=== PATIENT | male | born 1960 | race Caucasian/White ===

== ENCOUNTER 2023-08-29 22:07 | Inpatient (IN) ==
--- NOTE | 2023-08-29 22:35 | Emergency Department Note ---
History of Present Illness General Chief complaint: Fall Time Seen by Provider: 08/29/23 22:19 History of Present Illness Maximum Pain Intensity: 7 This 63-year-old male presents the ER complaining of head and neck bilateral knee left hip and left de león pain after he fell at work today. 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 This is a work-related injury. Send at 2:30 in the afternoon and is now 10:30 at night. He has been ambulating but having severe pain in the left calf when walking. Patient denies chest pain, dyspnea, abdominal pain, numbness, tingling, localized weakness. Home Medications Medication Instructions Recorded Confirmed Type aspirin 81 mg tablet,delayed 81 mg PO DAILY 08/30/23 08/30/23 History release atorvastatin 40 mg tablet 40 mg PO HS 08/30/23 08/30/23 History bupropion HCl 150 mg tablet,12 hr 150 mg PO BID 08/30/23 08/30/23 History sustained-release cholecalciferol (vitamin D3) 50 50 mcg PO DAILY 08/30/23 08/30/23 History mcg (2,000 unit) capsule (Vitamin D3) coenzyme Q10 100 mg capsule 100 mg PO DAILY 08/30/23 08/30/23 History (CoQ-10) dulaglutide 1.5 mg/0.5 mL 1.5 mg subcut WK 08/30/23 08/30/23 History subcutaneous pen injector (Trulicity) empagliflozin 25 mg tablet 25 mg PO DAILY 08/30/23 08/30/23 History (Jardiance) insulin lispro protamine-lispro See Rx Instructions .Route .COMPLEX 08/30/23 08/30/23 History 100 unit/mL (75-25) subcutaneous pen (Humalog Mix 75-25 ZainabikPen) lisinopril 10 mg tablet 10 mg PO DAILY 08/30/23 08/30/23 History meloxicam 15 mg tablet 15 mg PO DAILY 08/30/23 08/30/23 History metformin 1,000 mg tablet 1,000 mg PO BID 08/30/23 08/30/23 History methocarbamol 750 mg tablet 750 mg PO HS 08/30/23 08/30/23 History metoclopramide HCl 10 mg tablet 10 mg PO BID 08/30/23 08/30/23 History (Reglan) metoprolol tartrate 25 mg tablet 25 mg PO BID 08/30/23 08/30/23 History multivitamin 1 tab PO DAILY 08/30/23 08/30/23 History omeprazole 40 mg capsule,delayed 40 mg PO DAILY 08/30/23 08/30/23 History release ropinirole 0.5 mg tablet 0.5 mg PO HS 08/30/23 08/30/23 History zolpidem 5 mg tablet 5 mg PO HS PRN Sleep 08/30/23 08/30/23 History Allergies Allergy/AdvReac Type Severity Reaction Status Date / Time No Known Allergies Allergy Verified 08/30/23 07:13 Past Med/Surg History Social History (System 08/30/23 @ 07:13 by Kassi Forbes) Smoking Status: Never smoker Preferred Language: Sami Communication Ability: Effective Feels Safe at Home: Yes Assistive Devices: None Review of Systems A total of 10 systems reviewed and were otherwise negative Physical Exam Vital Signs Vital Signs - 24 hr 08/29/23 22:18 08/29/23 23:40 08/30/23 00:46 Temperature 36.7 C Temperature Source Oral Pulse Rate 92 H 89 Pulse Rate [Apical] 88 Respiratory Rate 22 20 Respiratory Effort / Characteristics Non-Labored Spontaneous Respiratory Depth Normal Respiratory Pattern Regular Blood Pressure 161/85 H Blood Pressure [Right Arm] 153/81 H Blood Pressure Mean 110 Blood Pressure Mean [Right Arm] 105 Blood Pressure Position Semi-fowlers Pulse Oximetry 95 96 Oxygen Delivery Method Room Air Room Air Sepsis Recent Fever Within 48 Hours No Sepsis New/Unexplained Change in Mental Status N/A Sepsis Action Taken by Nursing No Action Required 08/30/23 01:41 08/30/23 03:00 08/30/23 03:33 Temperature Temperature Source Pulse Rate 91 H Pulse Rate [Apical] 88 90 Respiratory Rate 20 20 Respiratory Effort / Characteristics Respiratory Depth Respiratory Pattern Blood Pressure Blood Pressure [Right Arm] 135/76 181/100 H Blood Pressure Mean Blood Pressure Mean [Right Arm] 95 127 Blood Pressure Position Pulse Oximetry 95 95 Oxygen Delivery Method Room Air Room Air Sepsis Recent Fever Within 48 Hours Sepsis New/Unexplained Change in Mental Status Sepsis Action Taken by Nursing 08/30/23 03:58 Temperature Temperature Source Pulse Rate Pulse Rate [Apical] 87 Respiratory Rate 16 Respiratory Effort / Characteristics Respiratory Depth Respiratory Pattern Blood Pressure Blood Pressure [Right Arm] 166/82 H Blood Pressure Mean Blood Pressure Mean [Right Arm] 110 Blood Pressure Position Pulse Oximetry 95 Oxygen Delivery Method Room Air Sepsis Recent Fever Within 48 Hours Sepsis New/Unexplained Change in Mental Status Sepsis Action Taken by Nursing PHYSICAL EXAM: VITALS: Vitals are noted on the nurse's note and reviewed by myself. Vital signs stable. GENERAL: Pleasant gentleman, in no acute distress, nondiaphoretic, well- developed well-nourished. SKIN: The skin was without obvious lacerations or abrasions. Capillary reflex less than 2 seconds. HEAD: Normocephalic atraumatic. EARS: External auditory canals clear, tympanic membranes pearly alejandre without erythema or effusion bilaterally. No hemotympanums. No ni sign. No mastoid tenderness. EYES: Pupils equal round and reactive to light and accommodation. Conjunctivae without injection, sclerae without icterus. Extraocular movements intact. NOSE: Patent, turbinates without inflammation or discharge. No sinus tenderness. MOUTH: Mucous membranes moist. Pharynx without erythema or exudate. Uvula midline. Airway patent. Tongue does not deviate. NECK: Supple without nuchal rigidity. C-collar is in place, no JVD. HEART: Regular rate and rhythm LUNGS: Clear to auscultation bilaterally without wheezes, rales or rhonchi. No dullness to percussion. No retractions or accessory muscle use. No chest wall tenderness. ABDOMEN: Positive bowel sounds x 4. Normal tympanic percussion. Soft, nontender, without masses or organomegaly. No guarding or rebound tenderness. MUSCULOSKELETAL: No tenderness of the thoracic or lumbar spine. No tenderness with pelvic rocking. Left hip, left knee, left tib-fib and right knee tender to palpation with full range of motion. Full range of motion without tenderness to palpation in all other extremities. Normal gait. Strength 5/5 throughout. NEURO: Patient was alert and oriented to person place and time. Normal sensation to light and sharp touch. No focal neurological deficits. Course Administered Medications Bupropion HCl (Bupropion Sr 150 Mg Tabcr) 150 mg PO BID LANCE Stop: 09/29/23 08:59 Last Admin: 08/30/23 11:04 Dose: 150 mg Documented By: GERMAN Sodium Chloride (Nss) 1,000 mls @ 50 mls/hr IV .Q20H STA Stop: 08/31/23 01:01 Last Admin: 08/30/23 05:26 Dose: 50 mls/hr Documented By: DOMINIC Insulin Aspart (Insulin Aspart Per Unit Charge) 0 units SC ACHS LANCE Stop: 09/29/23 07:44 Last Admin: 08/30/23 17:51 Dose: 4 units Documented By: GERMAN Co-signed By: NIR Admin: 08/30/23 13:59 Dose: 4 units Documented By: GERMAN Co-signed By: TIMOTHY Admin: 08/30/23 11:01 Dose: 3 units Documented By: GERMAN Co-signed By: TIMOTHY Insulin Glargine (Lantus Per Unit Charge) 10 units SQ BID LANCE Stop: 09/29/23 08:59 Last Admin: 08/30/23 11:02 Dose: 10 units Documented By: GERMAN Co-signed By: TIMOTHY Lisinopril (Lisinopril 10 Mg Tab) 10 mg PO DAILY LANCE Stop: 09/29/23 08:59 Last Admin: 08/30/23 16:49 Dose: Not Given Documented By: GERMAN Metoclopramide HCl (Metoclopramide Hcl 10 Mg Tablet) 10 mg PO BID LANCE Stop: 09/29/23 08:59 Last Admin: 08/30/23 14:18 Dose: 10 mg Documented By: GERMAN Metoprolol Tartrate (Metoprolol Tartrate 25 Mg Tab) 25 mg PO BID LANCE Stop: 09/29/23 08:59 Last Admin: 08/30/23 14:19 Dose: 25 mg Documented By: GERMAN Morphine Sulfate (Morphine Sulfate 4 Mg/Ml 1 Ml Carp\Vial) 4 mg IV Q4H PRN PRN Reason: Pain Stop: 09/13/23 04:55 Last Admin: 08/30/23 16:44 Dose: 4 mg Documented By: Admin: 08/30/23 11:10 Dose: 4 mg Documented By: GERMAN Multivitamins (Multivitamin Tab) 1 tab PO DAILY LANCE Stop: 09/29/23 08:59 Last Admin: 08/30/23 14:18 Dose: Not Given Documented By: GERMAN Pantoprazole Sodium (Pantoprazole 40 Mg Tab) 40 mg PO DAILY LANCE Stop: 09/29/23 08:59 Last Admin: 08/30/23 11:05 Dose: 40 mg Documented By: GERMAN Discontinued Medications Acetaminophen (Acetaminophen 500 Mg Tab) 1,000 mg PO NOW STA Stop: 08/29/23 22:31 Last Admin: 08/29/23 22:39 Dose: 1,000 mg Documented By: Clonidine HCl (Clonidine Hcl 0.1 Mg Tab) 0.1 mg PO NOW STA Stop: 08/30/23 03:53 Last Admin: 08/30/23 03:59 Dose: 0.1 mg Documented By: DOMINIC Ibuprofen (Ibuprofen 200 Mg Tab) 400 mg PO NOW STA Stop: 08/30/23 02:06 Last Admin: 08/30/23 02:17 Dose: 400 mg Documented By: DOMINIC Ketorolac Tromethamine (Ketorolac Tromethamine 15 Mg/Ml Vial) 10 mg IV NOW STA Stop: 08/30/23 03:23 Last Admin: 08/30/23 03:55 Dose: 10 mg Documented By: DOMINIC Morphine Sulfate (Morphine Sulfate 4 Mg/Ml 1 Ml Carp\Vial) 4 mg IV NOW STA Stop: 08/30/23 04:20 Last Admin: 08/30/23 04:57 Dose: 4 mg Documented By: DOMINIC Medical Decision Making Medical Records Attestation: I reviewed the patient's medical records. Home Medications Current Medication List: was personally reviewed by me Laboratory Data 08/30/23 03:50 08/30/23 03:50 Lab Results 08/30/23 Range/Units 03:50 WBC 12.28 H (4.8-10.8) K/ul RBC 5.35 (4.70-6.10) M/uL Hgb 14.9 (14.0-18.0) g/dl Hct 44.5 (42.0-52.0) % MCV 83.2 (80.0-100.0) fL MCH 27.9 (25.0-34.0) pg MCHC 33.5 (32.0-36.0) g/dL RDW Std Deviation 41.9 (36.4-46.3) fL RDW Coeff of Vaishnavi 13.9 (11.5-14.5) % Plt Count 260 (130-400) K/uL MPV 10.6 (9.4-12.4) fL Immature Gran % (Auto) 0.6 % Neut % (Auto) 70.5 % Lymph % (Auto) 19.7 % Gem % (Auto) 7.6 % Eos % (Auto) 1.2 % Baso % (Auto) 0.4 % Neut # (Auto) 8.66 H (1.40-6.50) K/uL Lymph # (Auto) 2.42 (1.20-3.40) K/uL Gem # (Auto) 0.93 H (0.11-0.59) K/uL Eos # (Auto) 0.15 (0.00-0.50) K/uL Baso # (Auto) 0.05 (0.00-0.20) K/uL Immature Gran # (Auto) 0.07 (0.01-0.20) K/uL Sodium 134 L (136-145) mmol/L Potassium 4.1 (3.5-5.1) mmol/L Chloride 101 (98-107) mmol/L Carbon Dioxide 22 (21-32) mmol/L Anion Gap 11 (3-11) BUN 14 (6-23) mg/dl Creatinine 0.69 (0.6-1.4) mg/dl Est Cr Clr Drug Dosing 147.3 ml/min Est GFR ( Amer) 116.3 ml/min Est GFR (Non-Af Amer) 100.3 ml/min BUN/Creatinine Ratio 20.3 H (10-20) Glucose 151 H (70-99(Fasting)) mg/dl Estimat Average Glucose 151 mg/dl Hemoglobin A1c 6.9 H (4.5-5.6) % Calcium 9.8 (8.6-10.3) mg/dl Total Bilirubin 1.0 (0.2-1.0) mg/dl AST 20 (13-39) U/L ALT 28 (7-52) U/L Alkaline Phosphatase 94 (34-104) U/L Total Creatine Kinase 140 (30-223) U/L Total Protein 7.7 (6.0-8.3) gm/dl Albumin 4.5 (3.4-5.0) gm/dl Globulin 3.2 (2.5-4.0) gm/dl Albumin/Globulin Ratio 1.4 (0.9-2) Imaging Data Attestation: I personally reviewed and interpreted this imaging study as follows: Radiologist's Impression: Cervical Spine CT 08/29/23 22:30 Exam(s): CT C SPINE EXAM: CT Cervical Spine Without Intravenous Contrast CLINICAL HISTORY: Reason for exam: fall, HI. TECHNIQUE: Axial computed tomography images of the cervical spine without intravenous contrast. Automated exposure control was utilized for the study. A dose lowering technique was utilized adhering to the principles of ALARA. COMPARISON: No relevant prior studies available. FINDINGS: Vertebrae: Unremarkable. No acute fracture. Discs/spinal canal/neural foramina: No acute findings. Critical spinal canal stenosis at C3-4 and C5-6. Soft tissues: Left thyroid nodule. IMPRESSION: No evidence of acute cervical spine pathology. Critical spinal canal stenosis at C3-4 and C5-6. Recommend MRI of the cervical spine to evaluate for myelopathy. Electronically signed by: Alysia Marquez MD 08/30/23 00:[address] 08/29/23 22:30 Exam(s): CT HEAD Without Contrast EXAM: CT Head Without Intravenous Contrast CLINICAL HISTORY: Reason for exam: fall, HI. TECHNIQUE: Axial computed tomography images of the head/brain without intravenous contrast. Automated exposure control was utilized for the study. A dose lowering technique was utilized adhering to the principles of ALARA. COMPARISON: No relevant prior studies available. FINDINGS: Brain: Unremarkable. No hemorrhage. No significant white matter disease. No edema. Small benign congenital arachnoid cyst over the left frontal convexity. Ventricles: Mild ventriculomegaly. Bones/joints: Unremarkable. No acute fracture. Soft tissues: Unremarkable. Sinuses: Bilateral maxillary sinus retention cyst. No acute sinusitis. Mastoid air cells: Unremarkable as visualized. No mastoid effusion. IMPRESSION: No evidence of acute intracranial pathology. Electronically signed by: Alysia Marquez MD 08/30/23 00:33 AM Cervical Spine MRI 08/30/23 00:34 CR Exam(s): MRI C SPINE EXAM: MR Cervical Spine Without Intravenous Contrast CLINICAL HISTORY: Reason for exam: fall, severe pain, abnl CT. TECHNIQUE: Magnetic resonance images of the cervical spine without intravenous contrast in multiple planes. COMPARISON: Comparison made to prior CT scan of the cervical spine from August 29, 2023. FINDINGS: This study is limited secondary to motion artifact. Vertebrae: There are 7 cervical type vertebral bodies with a mild generalized curve to the right and straightening the normal cervical lordosis. There is normal vertebral body height and alignment. The bone marrow signal is heterogeneous with reactive endplate changes. There is narrowing of the cervical spinal canal secondary to congenitally short pedicles. No acute fracture. Spinal cord: There is flattening of the cord at C3-4, C4-5 and C5-6 with increased cord signal at C3-4 concern for cord edema. Soft tissues: The cervical flow voids are intact. DISCS/SPINAL CANAL/NEURAL FORAMINA: C2-C3: Moderate disc degeneration with annular disc bulge flattening the ventral thecal sac. There is moderate facet joint arthropathy with mild synovitis. C3-C4: Advanced disc degeneration with annular disc bulge flattening the ventral cord with increased cord signal concerning for cord edema and causing a critical spinal canal stenosis with AP diameter measuring 6 mm. There is moderate right and advanced left facet arthropathy with mild right and moderate left synovitis. C4-C5: Advanced disc degeneration with annular disc bulge flattening the ventral cord without abnormal cord signal and causing a critical spinal canal stenosis with AP diameter measuring 5.2 mm. There is advanced right and mild left facet arthropathy with moderate to advanced synovitis. C5-C6: Advanced disc degeneration with annular disc bulge flattening the ventral cord without evidence of abnormal cord signal and causing a severe spinal canal stenosis with AP diameter measuring 7.2 mm. There is mild facet arthropathy with mild synovitis. C6-C7: Advanced disc degeneration with annular disc bulge flattening the ventral thecal sac. There is mild facet arthropathy with mild synovitis. C7-T1: Advanced disc degeneration with annular disc bulge flattening the ventral thecal sac. There is minimal to mild facet joint arthropathy with mild synovitis. IMPRESSION: 1. Advanced disc degeneration at C3-4, C4-5, C5-6, C6-7 and C7-T1 and moderate disc degeneration at C2-3 with annular disc bulging flattening the ventral thecal sac and flattening the ventral cord at C3-4, C4-5 and C5-6 with increased cord signal at C3-4 concern for cord edema. Recommend neurosurgical consult for decompression. 2. There is a critical spinal canal stenosis at C3-4 and C4-5 with severe stenosis at C5-6. 3. The neural foramina are poorly visualized secondary to motion artifact. 4. There is minimal to advanced facet joint arthropathy with mild to advanced synovitis, most significant at C4-5. 5. No evidence of fracture, infection or tumor. Communications: Verify Receipt Electronically signed by: Alysia Marquez MD 08/30/23 02:20 AM MDM Narrative Prior records/ancillary studies reviewed. Triage Nursing notes reviewed. Additional history obtained from nursing. The patient's history was concerning for traumatic injury Differential diagnosis: Etiologies such as fracture, dislocation, intra-abdominal, pneumothorax, intrathoracic , intracranial, neurologic, as well as other traumatic pathologies were entertained. Physical examination findings: As above. The patients vitals were stable. ER treatment provided: Tylenol was ordered Toradol was ordered. Walker ambulation trial was ordered and patient is too much pain to ambulate An order was placed for continuous cardiac monitoring. The monitor shows a rate of 60-100 with a sinus rhythm per my interpretation. On reassessment the patient felt better. Vital signs were stable. Diagnostic interpretation by me: Labs: Mild leukocytosis, stable H&H Mild hyperglycemia without DKA Imaging studies: Bilateral knee x-rays negative fracture dislocation or effusion per my independent interpretation Tib-fib x-ray negative fracture, dislocation or effusion per my independent interpretation Hip x-ray negative fracture, dislocation or effusion per my independent interpretation Consultation: A consultation was placed with neurosurgery spine at [place], Dr. Negrete. The case was discussed and diagnostics were reviewed. He recommends soft c-collar and follow-up as scheduled next week for surgery. Patient states he sees neurosurgery spine at [facility] and this is why do voice was contacted. Consultation was placed with medicine And the case discussed. Patient will be admitted to the medical service for further evaluation and workup. This appears to be consistent with fall with head injury, cervical strain bilateral knee pain and left calf pain. Patient was neurovascularly and neurologically intact. Patient was having too much pain to bear weight on this left calf. I did speak to the neurosurgeon at [facility] who recommends a soft collar and the patient to follow-up as scheduled this Sunday for his surgery. Medicine was consulted here as the patient is having too much pain and felt like this left calf was weak for admission and further workup. X-rays were negative. Patient had no spinal pain. He is able to lift up both legs. He can plantarflex and dorsiflex. Patient fell at 230 yesterday afternoon and did not come to the ER till later last night. Patient is agreeable treatment plan of admission. Patient was admitted to the medical service. By the evaluation outlined above emergent etiologies such as fracture, dislocation, intra- abdominal, pneumothorax, pulmonary contusion, hemothorax, intracranial, as well as others were deemed relatively unlikely. The pt informed about the findings as listed above. All questions were answered and pleased with the treatment. The chart was completed utilizing [employer] Speech voice recognition software. Grammatical errors, random word insertions, pronoun errors, and incomplete sentences are an occassional consequence of this system due to software limitations, ambient noise, and hardware issues. Any formal questions or concerns about the content, text, or information contained within the body of this dictation should be directly addressed to the physician veterinarian assistant for clarification. Impression & Plan Acute neck pain, Fall, Acute pain of left hip, Acute pain of left knee, Pain of left calf, Acute pain of right knee, Head injury Discharge Plan Visit Data Chief Complaint: Fall ED Provider: Sarah Red ED Midlevel Provider: Katarzyna Rebollar Discharge Problem: Acute neck pain, Fall, Acute pain of left hip, Acute pain of left knee, Pain of left calf, Acute pain of right knee, Head injury Patient Disposition: Admitted As Inpatient Condition: Good Discharge Instructions Interventions: ED Discharge Assessment Last Done: 08/30/23 06:27
[2023-08-29] MEDS: ACETAMINOPHEN 500 MG TAB PO STA (22:39)
--- NOTE | 2023-08-30 00:30 | CT Scan Report ---
Exam(s): CT C SPINE EXAM: CT Cervical Spine Without Intravenous Contrast CLINICAL HISTORY: Reason for exam: fall, HI. TECHNIQUE: Axial computed tomography images of the cervical spine without intravenous contrast. Automated exposure control was utilized for the study. A dose lowering technique was utilized adhering to the principles of ALARA. COMPARISON: No relevant prior studies available. FINDINGS: Vertebrae: Unremarkable. No acute fracture. Discs/spinal canal/neural foramina: No acute findings. Critical spinal canal stenosis at C3-4 and C5-6. Soft tissues: Left thyroid nodule. IMPRESSION: No evidence of acute cervical spine pathology. Critical spinal canal stenosis at C3-4 and C5-6. Recommend MRI of the cervical spine to evaluate for myelopathy. Electronically signed by: Alysia Marquez MD 08/30/23 00:29 AM
--- NOTE | 2023-08-30 00:34 | CT Scan Report ---
Exam(s): CT HEAD Without Contrast EXAM: CT Head Without Intravenous Contrast CLINICAL HISTORY: Reason for exam: fall, HI. TECHNIQUE: Axial computed tomography images of the head/brain without intravenous contrast. Automated exposure control was utilized for the study. A dose lowering technique was utilized adhering to the principles of ALARA. COMPARISON: No relevant prior studies available. FINDINGS: Brain: Unremarkable. No hemorrhage. No significant white matter disease. No edema. Small benign congenital arachnoid cyst over the left frontal convexity. Ventricles: Mild ventriculomegaly. Bones/joints: Unremarkable. No acute fracture. Soft tissues: Unremarkable. Sinuses: Bilateral maxillary sinus retention cyst. No acute sinusitis. Mastoid air cells: Unremarkable as visualized. No mastoid effusion. IMPRESSION: No evidence of acute intracranial pathology. Electronically signed by: Alysia Marquez MD 08/30/23 00:33 AM
[2023-08-30] MEDS: IBUPROFEN 200 MG TAB PO STA (02:17)
--- NOTE | 2023-08-30 02:22 | Magnetic Resonance Report ---
Exam(s): MRI C SPINE EXAM: MR Cervical Spine Without Intravenous Contrast CLINICAL HISTORY: Reason for exam: fall, severe pain, abnl CT. TECHNIQUE: Magnetic resonance images of the cervical spine without intravenous contrast in multiple planes. COMPARISON: Comparison made to prior CT scan of the cervical spine from August 29, 2023. FINDINGS: This study is limited secondary to motion artifact. Vertebrae: There are 7 cervical type vertebral bodies with a mild generalized curve to the right and straightening the normal cervical lordosis. There is normal vertebral body height and alignment. The bone marrow signal is heterogeneous with reactive endplate changes. There is narrowing of the cervical spinal canal secondary to congenitally short pedicles. No acute fracture. Spinal cord: There is flattening of the cord at C3-4, C4-5 and C5-6 with increased cord signal at C3-4 concern for cord edema. Soft tissues: The cervical flow voids are intact. DISCS/SPINAL CANAL/NEURAL FORAMINA: C2-C3: Moderate disc degeneration with annular disc bulge flattening the ventral thecal sac. There is moderate facet joint arthropathy with mild synovitis. C3-C4: Advanced disc degeneration with annular disc bulge flattening the ventral cord with increased cord signal concerning for cord edema and causing a critical spinal canal stenosis with AP diameter measuring 6 mm. There is moderate right and advanced left facet arthropathy with mild right and moderate left synovitis. C4-C5: Advanced disc degeneration with annular disc bulge flattening the ventral cord without abnormal cord signal and causing a critical spinal canal stenosis with AP diameter measuring 5.2 mm. There is advanced right and mild left facet arthropathy with moderate to advanced synovitis. C5-C6: Advanced disc degeneration with annular disc bulge flattening the ventral cord without evidence of abnormal cord signal and causing a severe spinal canal stenosis with AP diameter measuring 7.2 mm. There is mild facet arthropathy with mild synovitis. C6-C7: Advanced disc degeneration with annular disc bulge flattening the ventral thecal sac. There is mild facet arthropathy with mild synovitis. C7-T1: Advanced disc degeneration with annular disc bulge flattening the ventral thecal sac. There is minimal to mild facet joint arthropathy with mild synovitis. IMPRESSION: 1. Advanced disc degeneration at C3-4, C4-5, C5-6, C6-7 and C7-T1 and moderate disc degeneration at C2-3 with annular disc bulging flattening the ventral thecal sac and flattening the ventral cord at C3-4, C4-5 and C5-6 with increased cord signal at C3-4 concern for cord edema. Recommend neurosurgical consult for decompression. 2. There is a critical spinal canal stenosis at C3-4 and C4-5 with severe stenosis at C5-6. 3. The neural foramina are poorly visualized secondary to motion artifact. 4. There is minimal to advanced facet joint arthropathy with mild to advanced synovitis, most significant at C4-5. 5. No evidence of fracture, infection or tumor. Communications: Verify Receipt Electronically signed by: Alysia Marquez MD 08/30/23 02:20 AM
[2023-08-30] MEDS: KETOROLAC TROMETHAMINE 15 MG/ML VIAL IV STA (03:55)
[2023-08-30] MEDS: cloNIDine HCL 0.1 MG TAB PO STA (03:59)
[2023-08-30 04:12] LABS: Basophils # (auto) 0.05 K/uL (0.00-0.20); Basophils % (auto) 0.4 %; Eosinophils # (auto) 0.15 K/uL (0.00-0.50); Eosinophils % (auto) 1.2 %; Hematocrit (blood only) 44.5 % (42.0-52.0); Hemoglobin 14.9 g/dl (14.0-18.0); Immature Granulocytes # (auto) 0.07 K/uL (0.01-0.20); Immature Granulocytes % (auto) 0.6 %; Lymphocytes # (auto) 2.42 K/uL (1.20-3.40); Lymphocytes % (auto) 19.7 %; Mean Corpuscular Hemoglobin 27.9 pg (25.0-34.0); Mean Corpuscular Hgb Conc 33.5 g/dL (32.0-36.0); Mean Corpuscular Volume 83.2 fL (80.0-100.0); Mean Platelet Volume 10.6 fL (9.4-12.4); Monocytes # (auto) 0.93 K/uL (0.11-0.59); Monocytes % (auto) 7.6 %; Neutrophils # (auto) 8.66 K/uL (1.40-6.50); Neutrophils % (auto) 70.5 %; Platelet Count 260 K/uL (130-400); RDW Coefficient of Variation 13.9 % (11.5-14.5); RDW Standard Deviation 41.9 fL (36.4-46.3); Red Blood Count 5.35 M/uL (4.70-6.10); White Blood Count 12.28 K/ul (4.8-10.8)
[2023-08-30 04:32] LABS: Albumin Globulin Ratio 1.4 (0.9-2); Albumin Level 4.5 gm/dl (3.4-5.0); BUN Creatinine Ratio 20.3 (10-20); Calcium 9.8 mg/dl (8.6-10.3); Creatinine Clr Calc Pharmacy 147.3 ml/min; Est GFR (African American) 116.3 ml/min; Est GFR (Non-African American) 100.3 ml/min; Globulin 3.2 gm/dl (2.5-4.0); Potassium 4.1 mmol/L (3.5-5.1); Total Protein 7.7 gm/dl (6.0-8.3)
--- NOTE | 2023-08-30 04:52 | History & Physical Report ---
Date of Service August 30, 2023 Assessment & Plan (1) Leg pain, left: Plan: Traumatic left leg pain/weakness Rule out bony injury hx CAD status post stent hypertension, BP much improved hyperlipidemia on statin Rx Cervical cord edema/stenosis on MRI, hx cervical myelopathy, chronic findings as per ER provider discussion with [facility] surgeon DM2 insulin requiring, unknown baseline control mood disorder, stable on bupropion past tobacco abuse OBS GMF Analgesia Follow official x-ray results May need Orthopedics evaluation Maintain cervical collar, outpatient follow-up with neurosurgeon (Dr. Escamilla) for cervical myelopathy next week as per ER provider phone conversation with specialist on-call. Basal bolus insulin, ISS BG goal 1 10-1 40, carb count coverage, check hemoglobin A1c DVT prophylaxis. SCDs Re: Recent trauma Full code Patient brother requesting updates providers. Mr. Roscoe Zazueta, contact #[phone]. Text document was generated using [employer] voice recognition software. It may contain grammatical or spelling errors. Kindly contact undersigned for clarification of any documentation item in question. History of Present Illness Chief Complaint: Fall, left lower leg pain Primary Care Provider: Fernanda Crane PA-C History obtained from patient, family, and records. Medical history significant for CAD status post stent, hypertension, hyperlipidemia, DM2 insulin requiring, cervical myelopathy, mood disorder, past tobacco abuse. 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 Patient landed on his left side resulting head trauma. Achy headache, neck and left lower leg pain following fall. No LOC/syncope. Denies chest pain or unusual SOB. No unusual low back pain. Left leg feels weak from pain as per patient. Chronic numbness on all 4 extremities which patient attributes to cervical myelopathy for which elective surgery is contemplated next week at [facility]. Denies incontinence symptoms. Highest SBP of 180s documented at the ER. SBP currently 150s. Patient unable to walk due to left lower leg pain/weakness. 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 Allergies Allergy/AdvReac Type Severity Reaction Status Date / Time No Known Allergies Allergy Verified 08/30/23 07:13 Home Medications Medication Instructions Recorded Confirmed Type aspirin 81 mg tablet,delayed 81 mg PO DAILY 08/30/23 08/30/23 History release atorvastatin 40 mg tablet 40 mg PO HS 08/30/23 08/30/23 History bupropion HCl 150 mg tablet,12 hr 150 mg PO BID 08/30/23 08/30/23 History sustained-release cholecalciferol (vitamin D3) 50 50 mcg PO DAILY 08/30/23 08/30/23 History mcg (2,000 unit) capsule (Vitamin D3) coenzyme Q10 100 mg capsule 100 mg PO DAILY 08/30/23 08/30/23 History (CoQ-10) dulaglutide 1.5 mg/0.5 mL 1.5 mg subcut WK 08/30/23 08/30/23 History subcutaneous pen injector (Trulicity) empagliflozin 25 mg tablet 25 mg PO DAILY 08/30/23 08/30/23 History (Jardiance) insulin lispro protamine-lispro See Rx Instructions .Route .COMPLEX 08/30/23 08/30/23 History 100 unit/mL (75-25) subcutaneous pen (Humalog Mix 75-25 KwikPen) lisinopril 10 mg tablet 10 mg PO DAILY 08/30/23 08/30/23 History meloxicam 15 mg tablet 15 mg PO DAILY 08/30/23 08/30/23 History metformin 1,000 mg tablet 1,000 mg PO BID 08/30/23 08/30/23 History methocarbamol 750 mg tablet 750 mg PO HS 08/30/23 08/30/23 History metoclopramide HCl 10 mg tablet 10 mg PO BID 08/30/23 08/30/23 History (Reglan) metoprolol tartrate 25 mg tablet 25 mg PO BID 08/30/23 08/30/23 History multivitamin 1 tab PO DAILY 08/30/23 08/30/23 History omeprazole 40 mg capsule,delayed 40 mg PO DAILY 08/30/23 08/30/23 History release ropinirole 0.5 mg tablet 0.5 mg PO HS 08/30/23 08/30/23 History zolpidem 5 mg tablet 5 mg PO HS PRN Sleep 08/30/23 08/30/23 History Past Med/Surg History Social History (System 08/30/23 @ 07:13 by Kassi Forbes) Smoking Status: Never smoker Preferred Language: Sami Communication Ability: Effective Feels Safe at Home: Yes Assistive Devices: None Review of Systems Review of Systems: As per HPI, all other systems reviewed and negative Physical Exam Physical Exam: GENERAL: Slightly uncomfortable, pleasant, obese, no respiratory distress SKIN: Normal color, warm HEENT: [place] palpebral conjunctivae, no ptosis, dry buccal mucosa NECK : Cervical collar in place, no overt tenderness CHEST : CTA, no tenderness HEART : RRR, no obvious murmurs ABDOMEN: Some distention, nontender EXTREMITIES : No LE swelling, LLE tenderness, no other conspicuous deformities noted NEUROLOGIC : Coherent, no facial asymmetry, MMTs BUE 4/5, RLE 3/5, LLE 2/5, gait and stance not assessed Results & Data Results & Data Vital Signs (Past 12 Hours) Vital Signs Temp Pulse Pulse Resp BP BP Pulse Ox 08/30/23 03:58 87 16 166/82 H 95 08/30/23 03:33 91 H 08/30/23 03:00 90 20 181/100 H 95 08/30/23 01:41 88 20 135/76 95 08/30/23 00:46 88 20 153/81 H 96 08/29/23 23:40 89 08/29/23 22:18 36.7 C 92 H 22 161/85 H 95 O2 Del Method 08/30/23 03:58 Room Air 08/30/23 03:33 08/30/23 03:00 Room Air 08/30/23 01:41 Room Air 08/30/23 00:46 Room Air 08/29/23 23:40 08/29/23 22:18 Room Air Laboratory Results Laboratory Results WBC 12.28 K/ul (4.8-10.8) H 08/30/23 03:50 RBC 5.35 M/uL (4.70-6.10) 08/30/23 03:50 Hgb 14.9 g/dl (14.0-18.0) 08/30/23 03:50 Hct 44.5 % (42.0-52.0) 08/30/23 03:50 MCV 83.2 fL (80.0-100.0) 08/30/23 03:50 MCH 27.9 pg (25.0-34.0) 08/30/23 03:50 MCHC 33.5 g/dL (32.0-36.0) 08/30/23 03:50 RDW Std Deviation 41.9 fL (36.4-46.3) 08/30/23 03:50 RDW Coeff of Vaishnavi 13.9 % (11.5-14.5) 08/30/23 03:50 Plt Count 260 K/uL (130-400) 08/30/23 03:50 MPV 10.6 fL (9.4-12.4) 08/30/23 03:50 Immature Gran % (Auto) 0.6 % 08/30/23 03:50 Neut % (Auto) 70.5 % 08/30/23 03:50 Lymph % (Auto) 19.7 % 08/30/23 03:50 [place] % (Auto) 7.6 % 08/30/23 03:50 Eos % (Auto) 1.2 % 08/30/23 03:50 Baso % (Auto) 0.4 % 08/30/23 03:50 Neut # (Auto) 8.66 K/uL (1.40-6.50) H 08/30/23 03:50 Lymph # (Auto) 2.42 K/uL (1.20-3.40) 08/30/23 03:50 [place] # (Auto) 0.93 K/uL (0.11-0.59) H 08/30/23 03:50 Eos # (Auto) 0.15 K/uL (0.00-0.50) 08/30/23 03:50 Baso # (Auto) 0.05 K/uL (0.00-0.20) 08/30/23 03:50 Immature Gran # (Auto) 0.07 K/uL (0.01-0.20) 08/30/23 03:50 Sodium 134 mmol/L (136-145) L 08/30/23 03:50 Potassium 4.1 mmol/L (3.5-5.1) 08/30/23 03:50 Chloride 101 mmol/L (98-107) 08/30/23 03:50 Carbon Dioxide 22 mmol/L (21-32) 08/30/23 03:50 Anion Gap 11 (3-11) 08/30/23 03:50 BUN 14 mg/dl (6-23) 08/30/23 03:50 Creatinine 0.69 mg/dl (0.6-1.4) 08/30/23 03:50 Est Cr Clr Drug Dosing 147.3 ml/min 08/30/23 03:50 Est GFR ( Amer) 116.3 ml/min 08/30/23 03:50 Est GFR (Non-Af Amer) 100.3 ml/min 08/30/23 03:50 BUN/Creatinine Ratio 20.3 (10-20) H 08/30/23 03:50 Glucose 151 mg/dl (70-99(Fasting)) H 08/30/23 03:50 Calcium 9.8 mg/dl (8.6-10.3) 08/30/23 03:50 Total Bilirubin 1.0 mg/dl (0.2-1.0) 08/30/23 03:50 AST 20 U/L (13-39) 08/30/23 03:50 ALT 28 U/L (7-52) 08/30/23 03:50 Alkaline Phosphatase 94 U/L (34-104) 08/30/23 03:50 Total Creatine Kinase 140 U/L (30-223) 08/30/23 03:50 Total Protein 7.7 gm/dl (6.0-8.3) 08/30/23 03:50 Albumin 4.5 gm/dl (3.4-5.0) 08/30/23 03:50 Globulin 3.2 gm/dl (2.5-4.0) 08/30/23 03:50 Albumin/Globulin Ratio 1.4 (0.9-2) 08/30/23 03:[address] 08/29/23 22:30 Exam(s): CT C SPINE EXAM: CT Cervical Spine Without Intravenous Contrast CLINICAL HISTORY: Reason for exam: fall, [place]. TECHNIQUE: Axial computed tomography images of the cervical spine without intravenous contrast. Automated exposure control was utilized for the study. A dose lowering technique was utilized adhering to the principles of ALARA. COMPARISON: No relevant prior studies available. FINDINGS: Vertebrae: Unremarkable. No acute fracture. Discs/spinal canal/neural foramina: No acute findings. Critical spinal canal stenosis at C3-4 and C5-6. Soft tissues: Left thyroid nodule. IMPRESSION: No evidence of acute cervical spine pathology. Critical spinal canal stenosis at C3-4 and C5-6. Recommend MRI of the cervical spine to evaluate for myelopathy. Electronically signed by: Alysia Marquez MD 08/30/23 00:[address] 08/29/23 22:30 Exam(s): CT HEAD Without Contrast EXAM: CT Head Without Intravenous Contrast CLINICAL HISTORY: Reason for exam: fall, [place]. TECHNIQUE: Axial computed tomography images of the head/brain without intravenous contrast. Automated exposure control was utilized for the study. A dose lowering technique was utilized adhering to the principles of ALARA. COMPARISON: No relevant prior studies available. FINDINGS: Brain: Unremarkable. No hemorrhage. No significant white matter disease. No edema. Small benign congenital arachnoid cyst over the left frontal convexity. Ventricles: Mild ventriculomegaly. Bones/joints: Unremarkable. No acute fracture. Soft tissues: Unremarkable. Sinuses: Bilateral maxillary sinus retention cyst. No acute sinusitis. Mastoid air cells: Unremarkable as visualized. No mastoid effusion. IMPRESSION: No evidence of acute intracranial pathology. Electronically signed by: Alysia Marquez MD 08/30/23 00:33 AM Cervical Spine MRI 08/30/23 00:34 CR Exam(s): MRI C SPINE EXAM: MR Cervical Spine Without Intravenous Contrast CLINICAL HISTORY: Reason for exam: fall, severe pain, abnl CT. TECHNIQUE: Magnetic resonance images of the cervical spine without intravenous contrast in multiple planes. COMPARISON: Comparison made to prior CT scan of the cervical spine from August 29, 2023. FINDINGS: This study is limited secondary to motion artifact. Vertebrae: There are 7 cervical type vertebral bodies with a mild generalized curve to the right and straightening the normal cervical lordosis. There is normal vertebral body height and alignment. The bone marrow signal is heterogeneous with reactive endplate changes. There is narrowing of the cervical spinal canal secondary to congenitally short pedicles. No acute fracture. Spinal cord: There is flattening of the cord at C3-4, C4-5 and C5-6 with increased cord signal at C3-4 concern for cord edema. Soft tissues: The cervical flow voids are intact. DISCS/SPINAL CANAL/NEURAL FORAMINA: C2-C3: Moderate disc degeneration with annular disc bulge flattening the ventral thecal sac. There is moderate facet joint arthropathy with mild synovitis. C3-C4: Advanced disc degeneration with annular disc bulge flattening the ventral cord with increased cord signal concerning for cord edema and causing a critical spinal canal stenosis with AP diameter measuring 6 mm. There is moderate right and advanced left facet arthropathy with mild right and moderate left synovitis. C4-C5: Advanced disc degeneration with annular disc bulge flattening the ventral cord without abnormal cord signal and causing a critical spinal canal stenosis with AP diameter measuring 5.2 mm. There is advanced right and mild left facet arthropathy with moderate to advanced synovitis. C5-C6: Advanced disc degeneration with annular disc bulge flattening the ventral cord without evidence of abnormal cord signal and causing a severe spinal canal stenosis with AP diameter measuring 7.2 mm. There is mild facet arthropathy with mild synovitis. C6-C7: Advanced disc degeneration with annular disc bulge flattening the ventral thecal sac. There is mild facet arthropathy with mild synovitis. C7-T1: Advanced disc degeneration with annular disc bulge flattening the ventral thecal sac. There is minimal to mild facet joint arthropathy with mild synovitis. IMPRESSION: 1. Advanced disc degeneration at C3-4, C4-5, C5-6, C6-7 and C7-T1 and moderate disc degeneration at C2-3 with annular disc bulging flattening the ventral thecal sac and flattening the ventral cord at C3-4, C4-5 and C5-6 with increased cord signal at C3-4 concern for cord edema. Recommend neurosurgical consult for decompression. 2. There is a critical spinal canal stenosis at C3-4 and C4-5 with severe stenosis at C5-6. 3. The neural foramina are poorly visualized secondary to motion artifact. 4. There is minimal to advanced facet joint arthropathy with mild to advanced synovitis, most significant at C4-5. 5. No evidence of fracture, infection or tumor. Communications: Verify Receipt Electronically signed by: Alysia Marquez MD 08/30/23 02:20 AM
[2023-08-30] MEDS: MoRPHine SULFATE 4 MG/ML 1 ML CARP\\VIAL IV STA (04:57)
[2023-08-30] MEDS: SODIUM CHLORIDE 0.9% 1,000 ML IV STA (05:26)
--- NOTE | 2023-08-30 07:20 | XRay Report ---
RIGHT KNEE 2 VIEWS CLINICAL HISTORY: Fall. Right knee injury. FINDINGS: AP and crosstable lateral views of the right knee are obtained. No prior studies are availa ble for comparison at the time of dictation. The skeletal structures appear osteopenic. No fracture i s seen. There is moderate degenerative narrowing in the medial compartment with bony sclerosis. Mild narrowing is seen in the medial and patellofemoral limits. There are large medial marginal osteophyte s and small patellar enthesophytes. No joint effusion is identified. There is mild prepatellar soft t issue swelling. Atherosclerotic calcification is noted in the popliteal artery. IMPRESSION: Degenerative change as above with no acute bony abnormality identified. Electronically signed by: Evan Euceda M.D. 08/30/2023 7:18 AM
--- NOTE | 2023-08-30 07:22 | XRay Report ---
XR hip LT 2V w pelvis HISTORY: 63 years-old Male fall, pain Acute pain of the pelvis and left hip status post trauma COMPARISON: None TECHNIQUE: AP view of the pelvis with 2 views of the left hip FINDINGS: Vascular calcifications. Mild osteoarthritis of the hips. There is no acute fracture, dislocation or avascular necrosis. IMPRESSION: No acute fracture or dislocation. ACT 112: Negative or not required by law. The above report was generated using voice recognition software. It may contain grammatical, syntax o r spelling errors. Electronically signed by: Kvng Parada M.D. 08/30/2023 7:21 AM
--- NOTE | 2023-08-30 07:26 | XRay Report ---
XR tibia fibula LT 2V HISTORY: 63 years-old Male fall, pain acute pain in the left ankle status post fall COMPARISON: None TECHNIQUE: 2 views of the left tibia and fibula FINDINGS: Arterial calcifications. Mild osteoarthritis of the knee and ankle. No acute fracture, dislocation or opaque foreign body. Arterial calcifications. IMPRESSION: No acute fracture or dislocation. ACT 112: Negative or not required by law. The above report was generated using voice recognition software. It may contain grammatical, syntax o r spelling errors. Electronically signed by: Kvng Parada M.D. 08/30/2023 7:24 AM
[2023-08-30 07:27] LABS: Estimated Average Glucose 151 mg/dl; Hemoglobin A1C 6.9 % (4.5-5.6)
--- NOTE | 2023-08-30 07:32 | XRay Report ---
LEFT KNEE 2 VIEWS CLINICAL HISTORY: Left knee injury. FINDINGS: AP and crosstable lateral views of the left knee are obtained. No prior studies are availab le for comparison at the time of dictation. The skeletal structures are osteopenic. No acute fracture is identified. There is minimal degenerative joint space narrowing. Prepatellar soft tissue edema is noted. A small joint effusion is suspected. There is atherosclerotic calcification of the popliteal artery. IMPRESSION: There is no radiographic evidence of acute fracture. Electronically signed by: Evan Euceda M.D. 08/30/2023 7:31 AM
[2023-08-30] MEDS ORDERED: GLUCAGON FOR INJ 1 MG VIAL SQ PRN (07:45)
[2023-08-30] MEDS ORDERED: CARBOHYDRATES FOR HYPOGLYCEMIA PO PRN (07:45)
[2023-08-30] MEDS ORDERED: DEXTROSE 50% 50 ML SYRINGE IV PRN (07:45)
[2023-08-30] MEDS ORDERED: GLUCOSE 40% GEL 15 GM TUBE PO PRN (07:45)
[2023-08-30] MEDS ORDERED: GLUCOSE 10 TAB/TUBE PO PRN (07:45)
[2023-08-30] MEDS: INSULIN ASPART PER UNIT CHARGE SC SCH (11:01)
[2023-08-30] MEDS: LANTUS PER UNIT CHARGE SQ SCH (11:02)
[2023-08-30] MEDS: buPROPion SR 150 MG TABCR PO SCH (11:04)
[2023-08-30] MEDS: PANTOprazole 40 MG TAB PO SCH (11:05)
[2023-08-30] MEDS: MoRPHine SULFATE 4 MG/ML 1 ML CARP\\VIAL IV PRN (11:10)
[2023-08-30] MEDS: MULTIVITAMIN TAB PO SCH (14:18)
[2023-08-30] MEDS: METOCLOPRAMIDE HCL 10 MG TABLET PO SCH (14:18)
[2023-08-30] MEDS: METOPROLOL TARTRATE 25 MG TAB PO SCH (14:19)
--- NOTE | 2023-08-30 15:21 | Communication Note ---
Date of Service: August 30, 2023 Patient was seen and examined at bedside. 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 Patient landed on his left side resulting in head trauma -no LOC, has left- sided pain. Of note, patient has chronic numbness on his all 4 extremities secondary to his cervical myelopathy for which he has elective surgery contemplated next week. He is being managed for the following: Fall Left leg pain, likely traumatic Rule out bony injury CT head, left hip x-ray, bilateral knee x-ray, left tibia fibula x-ray with no fracture. CT C-spine and MRI C-spine with chronic findings. Due to left calf pain, will get US venous Doppler to rule out DVT. Pain management, PT/OT. History of cervical myelopathy: MRI C-spine noted, patient has scheduled elective surgery next week. Maintain cervical collar, outpatient follow-up with neurosurgeon (Dr. Escamilla) for cervical myelopathy next week as per ER provider phone conversation with specialist on-call. Other chronic medical conditions: Continue with/resume home meds as and when able. hx CAD status post stent hypertension, BP fairly under control hyperlipidemia on statin Rx, continue Cervical cord edema/stenosis on MRI, hx cervical myelopathy, chronic findings as per ER provider discussion with surgeon DM2 insulin requiring, unknown baseline control. A1c of 6.9 this admission. mood disorder, stable on bupropion past tobacco abuse DVT prophylaxis. SCDs Re: Recent trauma Full code Patient brother Mr. Roscoe Zazutea, contact #[phone]. Text document was generated using [employer] voice recognition software. It may contain grammatical or spelling errors. Kindly contact undersigned for clarification of any documentation item in question.
[2023-08-30] MEDS: lisinopril 10 MG TAB PO SCH (16:49)
[2023-08-30] MEDS: ATORVASTATIN 40 MG TAB PO SCH (21:40)
[2023-08-30] MEDS: rOPINIRole HCL 0.25 MG TABLET PO SCH (21:40)
[2023-08-30] MEDS: METHOCARBAMOL 750 MG TABLET PO SCH (21:41)
[2023-08-30] MEDS: ZOLPIDEM TARTRATE 5 MG TAB PO PRN (21:49)
--- NOTE | 2023-08-31 07:13 | Ultrasound Report ---
LEFT LOWER EXTREMITY VENOUS DOPPLER CLINICAL HISTORY: Left lower extremity pain. COMPARISON STUDY: No previous studies for comparison. TECHNIQUE: Sonography of the deep venous system of the left lower extremity was performed. Compressi on and augmentation were evaluated. FINDINGS: The left common femoral, superficial femoral and popliteal veins were compressible. Augmen tation was normal. Flow was shown within the deep calf vessels. IMPRESSION: No evidence of deep venous thrombus within the left lower extremity. ACT 112: Negative or not required by law. Electronically signed by: Martin Billy M.D. 08/31/2023 7:12 AM
[2023-08-31 07:31] LABS: Basophils # (auto) 0.04 K/uL (0.00-0.20); Basophils % (auto) 0.4 %; Eosinophils # (auto) 0.13 K/uL (0.00-0.50); Eosinophils % (auto) 1.3 %; Hematocrit (blood only) 42.6 % (42.0-52.0); Hemoglobin 14.2 g/dl (14.0-18.0); Immature Granulocytes # (auto) 0.04 K/uL (0.01-0.20); Immature Granulocytes % (auto) 0.4 %; Lymphocytes # (auto) 2.08 K/uL (1.20-3.40); Lymphocytes % (auto) 20.1 %; Mean Corpuscular Hemoglobin 28.3 pg (25.0-34.0); Mean Corpuscular Hgb Conc 33.3 g/dL (32.0-36.0); Mean Corpuscular Volume 84.9 fL (80.0-100.0); Mean Platelet Volume 10.4 fL (9.4-12.4); Monocytes # (auto) 0.84 K/uL (0.11-0.59); Monocytes % (auto) 8.1 %; Neutrophils # (auto) 7.22 K/uL (1.40-6.50); Neutrophils % (auto) 69.7 %; Platelet Count 235 K/uL (130-400); RDW Coefficient of Variation 14.1 % (11.5-14.5); RDW Standard Deviation 43.2 fL (36.4-46.3); Red Blood Count 5.02 M/uL (4.70-6.10); White Blood Count 10.35 K/ul (4.8-10.8)
[2023-08-31 07:58] LABS: BUN Creatinine Ratio 22.2 (10-20); Calcium 9.5 mg/dl (8.6-10.3); Creatinine Clr Calc Pharmacy 141.2 ml/min; Est GFR (African American) 114.3 ml/min; Est GFR (Non-African American) 98.6 ml/min; Potassium 4.2 mmol/L (3.5-5.1)
[2023-08-31] MEDS: oxyCODONE HCL IR 5 MG TAB (IMMEDIATE RELEASE) PO PRN (14:31)
--- NOTE | 2023-08-31 16:19 | Hospitalist Progress Note ---
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 Patient landed on his left side resulting in head trauma -no LOC, has left- sided pain. Of note, patient has chronic numbness on his all 4 extremities secondary to his cervical myelopathy for which he has elective surgery contemplated next week. He is being managed for the following: Fall Left leg pain, likely traumatic Rule out bony injury CT head, left hip x-ray, bilateral knee x-ray, left tibia fibula x-ray with no fracture. CT C-spine and MRI C-spine with chronic findings. Due to left calf pain, will get US venous Doppler to rule out DVT. neg for dvt Pain management, PT/OT. likely will need rehab due to fxnal decline. History of cervical myelopathy: MRI C-spine noted, patient has scheduled electi ve surgery next week. Maintain cervical collar with activity/can take off when in bed, outpatient follow-up with DR GRACIA neurosurgeon (Dr. Escamilla) for cervical myelopathy next week as per ER provider phone conversation with specialist on- call. Other chronic medical conditions: Continue with/resume home meds as and when able. hx CAD status post stent hypertension, BP fairly under control hyperlipidemia on statin Rx, continue Cervical cord edema/stenosis on MRI, hx cervical myelopathy, chronic findings as per ER provider discussion with [facility] surgeon DM2 insulin requiring, unknown baseline control. A1c of 6.9 this admission. mood disorder, stable on bupropion past tobacco abuse DVT prophylaxis. SCDs Re: Recent trauma Full code Patient brother Mr. Roscoe Zazueta, contact #[phone]. Text document was generated using [employer] voice recognition software. It may contain grammatical or spelling errors. Kindly contact undersigned for clarification of any documentation item in question. Admission and Anticipated Discharge Date Admission Date: August 30, 2023 Subjective Patient was seen and examined at bedside. Patient was lying in bed, on room air, resting comfortably, not in any acute distress. Patient reports overall pain getting some better, patient is still not able to ambulate. Patient reports diet okay and would like laxative. Will order. Physical Exam Physical Exam: GENERAL: NAD, pleasant, obese, no respiratory distress SKIN: Normal color, warm HEENT: [place] palpebral conjunctivae, no ptosis, dry buccal mucosa NECK : Cervical collar in place, no overt tenderness CHEST : CTA, no tenderness HEART : RRR, no obvious murmurs ABDOMEN: Some distention, nontender EXTREMITIES : No LE swelling, LLE tenderness, no other conspicuous deformities noted NEUROLOGIC : Coherent, no facial asymmetry, moves extremities Results & Data Results & Data Vital Signs (Past 12 Hours) Vital Signs Temp Pulse Resp BP Pulse Ox Pulse Ox O2 Del Method 08/31/23 15:10 36.7 C 82 18 114/72 95 Room Air 08/31/23 09:00 93 08/31/23 07:50 36.8 C 81 18 142/77 H 93 Room Air O2 Del Method 08/31/23 15:10 08/31/23 09:00 Room Air 08/31/23 07:50
[2023-08-31] MEDS: DOCUSATE SODIUM 100 MG CAP PO SCH (21:05)
[2023-09-01] MEDS: POLYETHYLENE (MIRALAX) 17 GM PACK PO PRN (08:23)
--- NOTE | 2023-09-01 16:09 | Hospitalist Progress Note ---
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 Patient landed on his left side resulting in head trauma -no LOC, has left- sided pain. Of note, patient has chronic numbness on his all 4 extremities secondary to his cervical myelopathy for which he has elective surgery contemplated next week. He is being managed for the following: Fall Left leg pain, likely traumatic Rule out bony injury CT head, left hip x-ray, bilateral knee x-ray, left tibia fibula x-ray with no fracture. CT C-spine and MRI C-spine with chronic findings. Due to left calf pain, will get US venous Doppler to rule out DVT. neg for dvt Pain management, PT/OT. likely will need rehab due to fxnal decline. History of cervical myelopathy: MRI C-spine noted, patient has scheduled elect victor hugo surgery next week. Maintain cervical collar with activity/can take off when in bed, outpatient follow-up with DR GRACIA neurosurgeon (Dr. Escamilla) for cervical myelopathy next week as per ER provider phone conversation with specialist on- call. Other chronic medical conditions: Continue with/resume home meds as and when able. hx CAD status post stent hypertension, BP fairly under control hyperlipidemia on statin Rx, continue Cervical cord edema/stenosis on MRI, hx cervical myelopathy, chronic findings as per ER provider discussion with [facility] surgeon DM2 insulin requiring, unknown baseline control. A1c of 6.9 this admission. mood disorder, stable on bupropion past tobacco abuse DVT prophylaxis. heparin sc Full code Patient brother Mr. Roscoe Zazueta, contact #[phone]. Text document was generated using [email or web address] voice recognition software. It may contain grammatical or spelling errors. Kindly contact undersigned for clarification of any documentation item in question. Admission and Anticipated Discharge Date Admission Date: August 31, 2023 Subjective Patient was seen and examined at bedside. Patient was lying in bed, on room air, resting comfortably, not in any acute distress. Patient reports overall pain getting some better, patient is still not able to ambulate, now able to stand Patient reports diet okay and c/w bowel regimen Physical Exam Physical Exam: GENERAL: NAD, pleasant, obese, no respiratory distress SKIN: Normal color, warm HEENT: [place] palpebral conjunctivae, no ptosis, dry buccal mucosa NECK : Cervical collar in place, no overt tenderness CHEST : CTA, no tenderness HEART : RRR, no obvious murmurs ABDOMEN: Some distention, nontender EXTREMITIES : No LE swelling, LLE tenderness, no other conspicuous deformities noted NEUROLOGIC : Coherent, no facial asymmetry, moves extremities Results & Data Results & Data Vital Signs (Past 12 Hours) Vital Signs Temp Pulse Resp BP Pulse Ox O2 Del Method 09/01/23 15:49 36.9 C 86 18 134/70 95 Room Air 09/01/23 07:29 36.8 C 82 18 143/70 H 93 Room Air
[2023-09-01] MEDS: HEPARIN SOD 5,000 UNIT/0.5 ML VIAL SQ SCH (20:28)
[2023-09-01] MEDS: PROMETHAZINE HCL 12.5 MG in SODIUM CHLORIDE 0.9% 50 ML IV PRN (20:39)
[2023-09-02 06:35] LABS: BUN Creatinine Ratio 22.9 (10-20); Calcium 9.5 mg/dl (8.6-10.3); Creatinine Clr Calc Pharmacy 145.2 ml/min; Est GFR (African American) 115.6 ml/min; Est GFR (Non-African American) 99.7 ml/min; Phosphorus 3.4 mg/dl (2.5-4.9); Potassium 4.4 mmol/L (3.5-5.1)
[2023-09-02] MEDS: LACTULOSE SYRUP 20 GM/30 ML UDC PO ONE (14:07)
--- NOTE | 2023-09-02 15:43 | Hospitalist Progress Note ---
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 Patient landed on his left side resulting in head trauma -no LOC, has left- sided pain. Of note, patient has chronic numbness on his all 4 extremities secondary to his cervical myelopathy for which he has elective surgery contemplated next week. He is being managed for the following: Fall Left leg pain, likely traumatic Rule out bony injury CT head, left hip x-ray, bilateral knee x-ray, left tibia fibula x-ray with no fracture. CT C-spine and MRI C-spine with chronic findings. Due to left calf pain, will get US venous Doppler to rule out DVT. neg for dvt Pain management, PT/OT. likely will need rehab due to fxnal decline. Pain management consult. History of cervical myelopathy: MRI C-spine noted, patient has scheduled elective surgery next week. Maintain cervical collar with activity/can take off when in bed, outpatient follow-up with DR GRACIA neurosurgeon (Dr. Escamilla) for cervical myelopathy next week as per ER provider phone conversation with specialist on-call. Other chronic medical conditions: Continue with/resume home meds as and when able. hx CAD status post stent hypertension, BP fairly under control hyperlipidemia on statin Rx, continue Cervical cord edema/stenosis on MRI, hx cervical myelopathy, chronic findings as per ER provider discussion with [facility] surgeon DM2 insulin requiring, unknown baseline control. A1c of 6.9 this admission. mood disorder, stable on bupropion past tobacco abuse DVT prophylaxis. heparin sc Full code Patient brother Mr. Roscoe Zazueta, contact #[phone]. Text document was generated using [employer] voice recognition software. It may contain grammatical or spelling errors. Kindly contact undersigned for clarification of any documentation item in question. Admission and Anticipated Discharge Date Admission Date: August 31, 2023 Subjective Patient was seen and examined at bedside. Patient was lying in bed, on room air, resting comfortably, not in any acute distress. Patient reports pain not improving very well, patient is still not able to ambulate, has constipation, will give additional dose of bowel regimen today. Patient reports diet okay and c/w bowel regimen. Will consult pain management. Physical Exam Physical Exam: GENERAL: NAD, pleasant, obese, no respiratory distress SKIN: Normal color, warm HEENT: [place] palpebral conjunctivae, no ptosis, dry buccal mucosa NECK : Cervical collar in place, no overt tenderness CHEST : CTA, no tenderness HEART : RRR, no obvious murmurs ABDOMEN: Some distention, nontender EXTREMITIES : No LE swelling, LLE tenderness, no other conspicuous deformities noted NEUROLOGIC : Coherent, no facial asymmetry, moves extremities Results & Data Results & Data Vital Signs (Past 12 Hours) Vital Signs Temp Pulse Resp BP Pulse Ox O2 Del Method 09/02/23 15:16 37.1 C 77 18 132/79 95 Room Air 09/02/23 08:14 36.8 C 80 16 145/90 H 95 Room Air
[2023-09-03] MEDS ORDERED: PHARMACY GLYCEMIC MGMT CONSULT PRN (09:12)
[2023-09-03] MEDS ORDERED: DEXAMETHASONE SOD INJ 4 MG/ML VIAL IV SCH (09:15)
[2023-09-03 09:18] LABS: Basophils # (auto) 0.05 K/uL (0.00-0.20); Basophils % (auto) 0.6 %; Eosinophils # (auto) 0.15 K/uL (0.00-0.50); Eosinophils % (auto) 1.8 %; Hematocrit (blood only) 43.4 % (42.0-52.0); Hemoglobin 14.8 g/dl (14.0-18.0); Immature Granulocytes # (auto) 0.04 K/uL (0.01-0.20); Immature Granulocytes % (auto) 0.5 %; Lymphocytes # (auto) 2.15 K/uL (1.20-3.40); Lymphocytes % (auto) 25.4 %; Mean Corpuscular Hemoglobin 28.8 pg (25.0-34.0); Mean Corpuscular Hgb Conc 34.1 g/dL (32.0-36.0); Mean Corpuscular Volume 84.4 fL (80.0-100.0); Mean Platelet Volume 10.4 fL (9.4-12.4); Monocytes # (auto) 0.62 K/uL (0.11-0.59); Monocytes % (auto) 7.3 %; Neutrophils # (auto) 5.47 K/uL (1.40-6.50); Neutrophils % (auto) 64.4 %; Platelet Count 226 K/uL (130-400); RDW Coefficient of Variation 13.9 % (11.5-14.5); RDW Standard Deviation 42.7 fL (36.4-46.3); Red Blood Count 5.14 M/uL (4.70-6.10); White Blood Count 8.48 K/ul (4.8-10.8)
[2023-09-03 09:32] LABS: Calcium 9.5 mg/dl (8.6-10.3); Creatinine Clr Calc Pharmacy 149.5 ml/min; Est GFR (Non-African American) 100.9 ml/min; Potassium 4.1 mmol/L (3.5-5.1)
--- NOTE | 2023-09-03 09:40 | Orthopedic Consultation ---
Date of Consultation September 03, 2023 Assessment & Plan (1) Cervical cord compression with myelopathy: Assessment cervical spinal stenosis with myeloradiculopathy and evidence of cord damage and decline in neurologic function. Plan at this time in the discussion today with the patient reviewing his clinical presentation imaging and treatment plan. He had previous cervical spinal stenosis with exacerbation after a fall and striking his head. He now has evidence of progressive neurologic decline an d recommending urgent surgical intervention. Would require an anterior cervical corpectomy of C4 and ACDF of C5-C6. Risk benefits pros cons and alternatives were outlined in detail. Risk include but not limited to anesthesia blindness stroke paralysis nerve damage blood loss requiring transfusion infection requiring reoperation passively be stabilization the cervical spine halting the progression of cord damage and hopefully improvement in function over time. Patient stands agrees. Make him n.p.o. after midnight plan for surgery in a.m. 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 On the way down he did strike his head and had immediate onset of neck pain. He was seen at [facility] and shipped to [facility] due to his inability to ambulate. Previously he was diagnosed with cervical spinal stenosis is struggling with bilateral arm numbness and weakness and was scheduled for possible procedure. He has progressed dramatically since his fall now with the inability to ambulate. He states he is able to stand and shuffle a few feet at most but his legs are completely unreliable and give out. He describes dense numbness down the arms into the hands. He has pain rating into the interscapular region with any cervical range of motion. Allergies Allergy/AdvReac Type Severity Reaction Status Date / Time No Known Allergies Allergy Verified 08/30/23 07:13 Home Medications Medication Instructions Recorded Confirmed Type aspirin 81 mg tablet,delayed 81 mg PO DAILY 08/30/23 08/30/23 History release atorvastatin 40 mg tablet 40 mg PO HS 08/30/23 08/30/23 History bupropion HCl 150 mg tablet,12 hr 150 mg PO BID 08/30/23 08/30/23 History sustained-release cholecalciferol (vitamin D3) 50 50 mcg PO DAILY 08/30/23 08/30/23 History mcg (2,000 unit) capsule (Vitamin D3) coenzyme Q10 100 mg capsule 100 mg PO DAILY 08/30/23 08/30/23 History (CoQ-10) dulaglutide 1.5 mg/0.5 mL 1.5 mg subcut WK 08/30/23 08/30/23 History subcutaneous pen injector (Trulicity) empagliflozin 25 mg tablet 25 mg PO DAILY 08/30/23 08/30/23 History (Jardiance) insulin lispro protamine-lispro See Rx Instructions .Route .COMPLEX 08/30/23 08/30/23 History 100 unit/mL (75-25) subcutaneous pen (Humalog Mix 75-25 KwikPen) lisinopril 10 mg tablet 10 mg PO DAILY 08/30/23 08/30/23 History meloxicam 15 mg tablet 15 mg PO DAILY 08/30/23 08/30/23 History metformin 1,000 mg tablet 1,000 mg PO BID 08/30/23 08/30/23 History methocarbamol 750 mg tablet 750 mg PO HS 08/30/23 08/30/23 History metoclopramide HCl 10 mg tablet 10 mg PO BID 08/30/23 08/30/23 History (Reglan) metoprolol tartrate 25 mg tablet 25 mg PO BID 08/30/23 08/30/23 History multivitamin 1 tab PO DAILY 08/30/23 08/30/23 History omeprazole 40 mg capsule,delayed 40 mg PO DAILY 08/30/23 08/30/23 History release ropinirole 0.5 mg tablet 0.5 mg PO HS 08/30/23 08/30/23 History zolpidem 5 mg tablet 5 mg PO HS PRN Sleep 08/30/23 08/30/23 History Patient History Medical History (Updated 09/03/23 @ 08:49 by Rossi Schultz DO) History of ID (myocardial infarction) 2005 status post stent Diabetes mellitus Type II requiring insulin Past use of tobacco Mood disorder Cervical cord compression with myelopathy Cervical spinal stenosis Hypertension Hyperlipidemia CAD (coronary artery disease) Surgical History (Updated 09/03/23 @ 08:49 by Rossi Schultz DO) History of sinus surgery History of knee surgery History of laparoscopic cholecystectomy History of heart artery stent 2006 Social History (System 08/30/23 @ 07:13 by Kassi Forbes) Smoking Status: Never smoker Hx Alcohol Use: No Hx Substance Use: No Preferred Language: Italian Communication Ability: Effective 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 He exhibits Lhermitte's phenomenon with cervical extension and flexion. He has a Spurling sign bilaterally. He exhibits marked weakness to examination of the upper extremities at the 4/5 grasp biceps triceps deltoids. Sensory is diminished. Lower extremities demonstrate 3 beat clonus bilateral ankles brisk patellar reflexes and again weak plantarflexion dorsiflexion quadriceps. Results & Data Vital Signs (Past 12 Hours) Vital Signs Temp Pulse Resp BP Pulse Ox O2 Del Method 09/03/23 08:14 36.7 C 83 18 135/77 93 Room Air
[2023-09-03] MEDS: dexAMETHasone 4 MG in SYRINGE 0 ML IV SCH (10:04)
--- NOTE | 2023-09-03 12:22 | Pharmacy Report ---
Pharmacy Glycemic Short Note 2 - Date of Service September 03, 2023 - Glycemic Short BSG Results (Last 24 hours): 09/02/23 09/02/23 09/03/23 16:59 20:46 07:58 Glucose POC Glucose 148 H 141 H 159 H 09/03/23 09/03/23 08:57 11:42 Glucose 244 H POC Glucose 237 H OUTPATIENT ANTIDIABETIC REGIMEN: * Humalog 75/25 mix - 46 units SC qAM + 56 units SC qPM * Metformin 1 g PO BIDM * Jardiance 25 mg PO daily * Trulicity 1.5 mg SC weekly (Sundays) HbA1c: 6.9% (08/30/23) ASSESSMENT: * BS is a 63 year old male who originally presented to ED on 08/30 w/ CC of head/neck/left leg pain following a fall * Orthopedics consulted - patient requiring urgent surgical intervention * C4 corpectomy, w/ cervical discectomy/fusion scheduled for tomorrow morning (09/04/23) * Dexamethasone 4 mg IV q6h initiated today - pharmacy consulted for glycemic management w/ initiation of steroids * Blood sugars well-controlled yesterday with 38 units of insulin (prior to steroids) * Given ~100 units of insulin/day reported at home in addition to other agents + initiation of steroids, I am anticipating significantly increased insulin needs upcoming. PLAN FOR INPATIENT GLYCEMIC CONTROL: * Hold outpatient oral diabetes medications * Basal insulin * Lantus 10 units SC this AM per prior physician order * Lantus 30 units SC x 1 w/ lunch * Lantus 0-10-20 units SC HS (see EHR for details) * Bolus insulin * NovoLog per scale ACHS or Q6hrs while NPO * Goal Range: Low 110 mg/dL - High 140 mg/dL * Correction Factor: 15 mg/dL/unit * Nutritional / Prandial insulin per carb ratio of 1 unit per 5 grams CHO consumed
--- NOTE | 2023-09-03 13:28 | Pain Management Consultation ---
Date of Consultation September 03, 2023 Assessment & Plan (1) Cervical cord compression with myelopathy: (2) Cervical spinal stenosis: (3) Fall: Plan 1. Patient has cervical myelopathy and noted cord edema on MRI imaging from 08/30/2023. Recommend ortho spine consultation for surgical options as there are no interventional pain management options appropriate at this time. This order was placed in a discussion with Dr. Webb took place today. 2. Recommend continuation of current regimen with consideration for IV steroids to minimize edema. This will be at the discretion of the hospitalist in light of patient's diabetes. 3. Laboratory workup including EKG for preanesthesia evaluation were ordered today. 4. Thank you for this consultation please call with any questions. 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 He was sent to [facility] under Worker's Compensation. He was then sent to [facility] due to inability to ambulate on 08/29/2023. Prior to his fall he had a history of cervical spinal stenosis with some dropping of items and had seen Dr. Peralta in [facility] and was scheduled for a cervical spine procedure on 09/05/2023. He states that after his fall he has had increasing inability to move his upper and lower extremities and is no longer able to ambulate. He admits to loss of sensation globally bilateral upper and lower extremity with " it feels like my hands are icicles or needles." Pain today is ranging between 6-10 out of 10 and has been mitigated with IV morphine and 2 doses of oxycodone 5 mg. He denies any side effects from his pain medication regimen including constipation or mental sedation. He reports pain with movement and has had difficulty rolling in bed secondary to ongoing issues with cervical myelopathy. He admits to this recent fall but denies bowel or bladder incontinence at this time. He admits to dropping of items. He requests a consultation with Dr. Webb so that he might have his surgery here at [facility]. Pain Assessment Full Body Front + Back: 2 1. [facility] Combined Pain Scale: 6-Mod to Severe - Significant limitations of ADLs. Hard to do anything Allergies Allergy/AdvReac Type Severity Reaction Status Date / Time No Known Allergies Allergy Verified 08/30/23 07:13 Home Medications Medication Instructions Recorded Confirmed Type aspirin 81 mg tablet,delayed 81 mg PO DAILY 08/30/23 08/30/23 History release atorvastatin 40 mg tablet 40 mg PO HS 08/30/23 08/30/23 History bupropion HCl 150 mg tablet,12 hr 150 mg PO BID 08/30/23 08/30/23 History sustained-release cholecalciferol (vitamin D3) 50 50 mcg PO DAILY 08/30/23 08/30/23 History mcg (2,000 unit) capsule (Vitamin D3) coenzyme Q10 100 mg capsule 100 mg PO DAILY 08/30/23 08/30/23 History (CoQ-10) dulaglutide 1.5 mg/0.5 mL 1.5 mg subcut WK 08/30/23 08/30/23 History subcutaneous pen injector (Trulicity) empagliflozin 25 mg tablet 25 mg PO DAILY 08/30/23 08/30/23 History (Jardiance) insulin lispro protamine-lispro See Rx Instructions .Route .COMPLEX 08/30/23 08/30/23 History 100 unit/mL (75-25) subcutaneous pen (Humalog Mix 75-25 KwikPen) lisinopril 10 mg tablet 10 mg PO DAILY 08/30/23 08/30/23 History meloxicam 15 mg tablet 15 mg PO DAILY 08/30/23 08/30/23 History metformin 1,000 mg tablet 1,000 mg PO BID 08/30/23 08/30/23 History methocarbamol 750 mg tablet 750 mg PO HS 08/30/23 08/30/23 History metoclopramide HCl 10 mg tablet 10 mg PO BID 08/30/23 08/30/23 History (Reglan) metoprolol tartrate 25 mg tablet 25 mg PO BID 08/30/23 08/30/23 History multivitamin 1 tab PO DAILY 08/30/23 08/30/23 History omeprazole 40 mg capsule,delayed 40 mg PO DAILY 08/30/23 08/30/23 History release ropinirole 0.5 mg tablet 0.5 mg PO HS 08/30/23 08/30/23 History zolpidem 5 mg tablet 5 mg PO HS PRN Sleep 08/30/23 08/30/23 History Patient History Medical History History of CT (myocardial infarction) 2006 status post stent Diabetes mellitus Type II requiring insulin Past use of tobacco Mood disorder Cervical cord compression with myelopathy Cervical spinal stenosis Hypertension Hyperlipidemia CAD (coronary artery disease) Surgical History History of sinus surgery History of knee surgery History of laparoscopic cholecystectomy History of heart artery stent 2006 Social History Smoking Status: Never smoker Hx Alcohol Use: No Hx Substance Use: No Preferred Language: Serbian Communication Ability: Effective Optometry Doctor Required: No Beliefs That Will Affect Care: None Current Living Situation: Other Current Living Situation Comment: home with brother Feels Safe at Home: Yes Safety Concerns: Feels Safe At This Time Assistive Devices: None Physical Exam 2 Physical Exam: Constitutional: Well-developed, well-nourished, healthy-appearing, normal weight Psych: Awake, alert, and oriented 3 with normal affect and mood. Recent memory appears grossly intact Eyes: Pupils are equally round and reactive to light with normal size pupils, eyelids appear normal Ear, nose, mouth, and throat: Moist nasal and oral membranes, lips and tongues appear normal, no external ear abnormalities are noted Neck: The trachea is midline without deviation and no thyromegaly is noted Respiratory: Normal respiratory effort without distress, no audible wheezes or rhonchi CV: Normal S1 and S2 Chest: Deferred Musculoskeletal: Head is normocephalic and atraumatic Cervical: Lordotic curve: Normal Range of motion is reduced in all planes Tenderness: Moderately tender over the axial midline Spurling's maneuver: positive bilaterally Strength: Strength is equal bilaterally with 4 out of 5 strength in all planes Sensation of upper extremities: Reduced sensation globally throughout bilateral upper extremities Deep tendon reflexes: Rated at 2+ in bilateral biceps, triceps, brachial radialis Lumbar: Strength: Strength is equal bilaterally with 2 out of 5 strength in all planes Sensation of lower extremities: Reduced sensation globally bilaterally Deep tendon reflexes: Rated at 3+ in bilateral L4 and S1 Pathologic reflexes noted: 2-3 beat clonus bilaterally Skin: No rashes, lesions, ulcers, or induration noted Neuro: No nystagmus noted, the tongue is midline, the patient is able to rotate their head bilaterally : Deferred Results (Pain Clinic) Diagnostic Review MRI: non enhanced, reports reviewed, images reviewed and findings discussed with patient MRI Findings: 08/30/23 ADDENDUM ADDENDUM: 08/30/23 02:39 Verify Receipt Verified receipt with Panel CovererClerk Millard and report was relayed to ANTONETTE Rebollar on 08/30 02:38 (-05:00) Electronically signed by: Alysia Marquez MD Electronically signed by: Alysia Marquez MD 08/30/23 02:20 AM ADDENDUM END Exam(s): MRI C SPINE EXAM: MR Cervical Spine Without Intravenous Contrast CLINICAL HISTORY: Reason for exam: fall, severe pain, abnl CT. TECHNIQUE: Magnetic resonance images of the cervical spine without intravenous contrast in multiple planes. COMPARISON: Comparison made to prior CT scan of the cervical spine from August 29, 2023. FINDINGS: This study is limited secondary to motion artifact. Vertebrae: There are 7 cervical type vertebral bodies with a mild generalized curve to the right and straightening the normal cervical lordosis. There is normal vertebral body height and alignment. The bone marrow signal is heterogeneous with reactive endplate changes. There is narrowing of the cervical spinal canal secondary to congenitally short pedicles. No acute fracture. Spinal cord: There is flattening of the cord at C3-4, C4-5 and C5-6 with increased cord signal at C3-4 concern for cord edema. Soft tissues: The cervical flow voids are intact. DISCS/SPINAL CANAL/NEURAL FORAMINA: C2-C3: Moderate disc degeneration with annular disc bulge flattening the ventral thecal sac. There is moderate facet joint arthropathy with mild synovitis. C3-C4: Advanced disc degeneration with annular disc bulge flattening the ventral cord with increased cord signal concerning for cord edema and causing a critical spinal canal stenosis with AP diameter measuring 6 mm. There is moderate right and advanced left facet arthropathy with mild right and moderate left synovitis. C4-C5: Advanced disc degeneration with annular disc bulge flattening the ventral cord without abnormal cord signal and causing a critical spinal canal stenosis with AP diameter measuring 5.2 mm. There is advanced right and mild left facet arthropathy with moderate to advanced synovitis. C5-C6: Advanced disc degeneration with annular disc bulge flattening the ventral cord without evidence of abnormal cord signal and causing a severe spinal canal stenosis with AP diameter measuring 7.2 mm. There is mild facet arthropathy with mild synovitis. C6-C7: Advanced disc degeneration with annular disc bulge flattening the ventral thecal sac. There is mild facet arthropathy with mild synovitis. C7-T1: Advanced disc degeneration with annular disc bulge flattening the ventral thecal sac. There is minimal to mild facet joint arthropathy with mild synovitis. IMPRESSION: 1. Advanced disc degeneration at C3-4, C4-5, C5-6, C6-7 and C7-T1 and moderate disc degeneration at C2-3 with annular disc bulging flattening the ventral thecal sac and flattening the ventral cord at C3-4, C4-5 and C5-6 with increased cord signal at C3-4 concern for cord edema. Recommend neurosurgical consult for decompression. 2. There is a critical spinal canal stenosis at C3-4 and C4-5 with severe stenosis at C5-6. 3. The neural foramina are poorly visualized secondary to motion artifact. 4. There is minimal to advanced facet joint arthropathy with mild to advanced synovitis, most significant at C4-5. 5. No evidence of fracture, infection or tumor.
[2023-09-03] MEDS: LACTULOSE SYRUP 30 GM/45 ML UDP PO STA (13:55)
[2023-09-03] MEDS: LANTUS PER UNIT CHARGE SQ ONE (13:56)
--- NOTE | 2023-09-03 15:00 | Cardiology Consultation ---
Date of Consultation September 03, 2023 Assessment & Plan (1) CAD (coronary artery disease): (2) History of MS (myocardial infarction): (3) History of heart artery stent: (4) Hypertension: (5) Hyperlipidemia: (6) Preop cardiovascular exam: Plan ASSESSMENT/PLAN: 1. CAD s/p PCI: No angina despite regular activity. Given prior PCI, recommend resuming aspirin as soon as safe from a surgical standpoint. Continue high intensity statin therapy. Continue beta-maggy without interruption. 2. Hypertension: Blood pressure mostly normotensive. Can continue outpatient regimen. Would not hold beta-maggy unless absolutely necessary with upcoming surgery. 3. Dyslipidemia: Continue high intensity statin therapy. 4. Preoperative cardiac assessment: Able to achieve greater than 4 METS without anginal or heart failure symptoms. Ischemic evaluation is not necessary for his urgent surgery. Recommend ECG which was ordered and pending. Discussed with nursing staff who plans on obtaining it this afternoon. Low cardiac risk. Continue beta-maggy throughout the perioperative period. 5. Disposition: Cardiology will sign off for now. Call with any further questions or concerns. He can continue to follow-up with his primary facing machine operator, Dr. Rojas, as scheduled. Thank you for allowing me to participate in the care of your patient. Please call for any other questions or concerns. Sincerely, Harmeet Rothman M.D. History of Present Illness Reason for Consultation: cardiac preop evaluation for urgent surgery Requesting Physician: Celestine Webb Attending Physician: Vanessa Beckford MD History of Present Illness Mr. Zazueta is a very pleasant 63-year-old gentleman with a history significant for CAD and MS s/p PCI (2005), type 2 diabetes, hypertension, dyslipidemia, and cervical cord compression with myelopathy. His primary facing machine operator is Dr. Rojas in [facility]. In 2005, he was awakened from sleep with bilateral shoulder pain and nausea and eventually developed chest pain. He went to his local hospital in [place] and was life flighted for emergent PCI. He underwent PCI x 1 but does not have the details of the procedure. He has not required cardiac catheterization since then but follows with cardiology in his hometown area. He was admitted here on 08/30/2023 after having a mechanical fall. He struck his head. His neurologic symptoms significantly worsened and he is now unable to stand/ambulate due to his left leg neurologic symptoms. He was seen by Dr. Webb of orthopedics and is planned for surgery tomorrow morning. 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 He is able to ambulate up and down the hallways and transport patients without chest pain or shortness of breath. He has not had any angina since initial PCI in 2005. He denies melena, hematochezia, hematuria, or other bleeding. He denies syncope, shortness of breath, palpitations, or edema. Review of systems: As above. Review of systems otherwise negative/unremarkable. Family history: Positive for CAD. Social history: Quit smoking approximately 17 years ago after 1.5 packs/day x 20 years. No alcohol or drug abuse. Performed patient transferred for care home. He was unaccompanied in his hospital room. Allergies Allergy/AdvReac Type Severity Reaction Status Date / Time No Known Allergies Allergy Verified 08/30/23 07:13 Home Medications Medication Instructions Recorded Confirmed Type aspirin 81 mg tablet,delayed 81 mg PO DAILY 08/30/23 08/30/23 History release atorvastatin 40 mg tablet 40 mg PO HS 08/30/23 08/30/23 History bupropion HCl 150 mg tablet,12 hr 150 mg PO BID 08/30/23 08/30/23 History sustained-release cholecalciferol (vitamin D3) 50 50 mcg PO DAILY 08/30/23 08/30/23 History mcg (2,000 unit) capsule (Vitamin D3) coenzyme Q10 100 mg capsule 100 mg PO DAILY 08/30/23 08/30/23 History (CoQ-10) dulaglutide 1.5 mg/0.5 mL 1.5 mg subcut WK 08/30/23 08/30/23 History subcutaneous pen injector (Trulicity) empagliflozin 25 mg tablet 25 mg PO DAILY 08/30/23 08/30/23 History (Jardiance) insulin lispro protamine-lispro See Rx Instructions .Route .COMPLEX 08/30/23 08/30/23 History 100 unit/mL (75-25) subcutaneous pen (Humalog Mix 75-25 KwikPen) lisinopril 10 mg tablet 10 mg PO DAILY 08/30/23 08/30/23 History meloxicam 15 mg tablet 15 mg PO DAILY 08/30/23 08/30/23 History metformin 1,000 mg tablet 1,000 mg PO BID 08/30/23 08/30/23 History methocarbamol 750 mg tablet 750 mg PO HS 08/30/23 08/30/23 History metoclopramide HCl 10 mg tablet 10 mg PO BID 08/30/23 08/30/23 History (Reglan) metoprolol tartrate 25 mg tablet 25 mg PO BID 08/30/23 08/30/23 History multivitamin 1 tab PO DAILY 08/30/23 08/30/23 History omeprazole 40 mg capsule,delayed 40 mg PO DAILY 08/30/23 08/30/23 History release ropinirole 0.5 mg tablet 0.5 mg PO HS 08/30/23 08/30/23 History zolpidem 5 mg tablet 5 mg PO HS PRN Sleep 08/30/23 08/30/23 History Patient History Medical History History of MS (myocardial infarction) 2006 status post stent Diabetes mellitus Type II requiring insulin Past use of tobacco Mood disorder Cervical cord compression with myelopathy Cervical spinal stenosis Hypertension Hyperlipidemia CAD (coronary artery disease) Surgical History History of sinus surgery History of knee surgery History of laparoscopic cholecystectomy History of heart artery stent 2005 Social History Smoking Status: Never smoker Hx Alcohol Use: No Hx Substance Use: No Preferred Language: Israeli Communication Ability: Effective Ordnance Officer Required: No Beliefs That Will Affect Care: None Current Living Situation: Other Current Living Situation Comment: home with brother Feels Safe at Home: Yes Safety Concerns: Feels Safe At This Time Assistive Devices: None Physical Exam Physical Exam: Gen.: No acute distress. Alert and oriented. HEENT: Anicteric sclera. Neck: No JVD. No bruits. Normal carotid upstrokes bilaterally. Cardiac: No ventricular heave. Regular. Normal S1-S2. 1/6 early peaking systolic ejection murmur best heard at the right upper sternal border. Pulmonary: Clear to auscultation bilaterally without wheezes, rales, or rhonchi. Abdomen: Soft, nontender, nondistended, with normoactive bowel sounds. No bruits noted. Extremities: 2+ radial pulses bilaterally. 2+ posterior tibialis pulses bilaterally. No edema or cyanosis. Psychiatric: Affect appears appropriate. Results & Data Vital Signs (Past 12 Hours) Vital Signs Temp Pulse Resp BP Pulse Ox O2 Del Method 09/03/23 08:14 36.7 C 83 18 135/77 93 Room Air Laboratory Results Laboratory Results - last 24 hr 09/02/23 09/02/23 09/03/23 16:59 20:46 07:58 WBC RBC Hgb Hct MCV MCH MCHC RDW Std Deviation RDW Coeff of Vaishnavi Plt Count MPV Immature Gran % (Auto) Neut % (Auto) Lymph % (Auto) Lucas % (Auto) Eos % (Auto) Baso % (Auto) Neut # (Auto) Lymph # (Auto) Lucas # (Auto) Eos # (Auto) Baso # (Auto) Immature Gran # (Auto) Sodium Potassium Chloride Carbon Dioxide Anion Gap BUN Creatinine Est Cr Clr Drug Dosing Est GFR ( Amer) Est GFR (Non-Af Amer) BUN/Creatinine Ratio Glucose POC Glucose 148 H 141 H 159 H Calcium 09/03/23 09/03/23 08:57 11:42 WBC 8.48 RBC 5.14 Hgb 14.8 Hct 43.4 MCV 84.4 MCH 28.8 MCHC 34.1 RDW Std Deviation 42.7 RDW Coeff of Vaishnavi 13.9 Plt Count 226 MPV 10.4 Immature Gran % (Auto) 0.5 Neut % (Auto) 64.4 Lymph % (Auto) 25.4 Lucas % (Auto) 7.3 Eos % (Auto) 1.8 Baso % (Auto) 0.6 Neut # (Auto) 5.47 Lymph # (Auto) 2.15 Lucas # (Auto) 0.62 H Eos # (Auto) 0.15 Baso # (Auto) 0.05 Immature Gran # (Auto) 0.04 Sodium 130 L Potassium 4.1 Chloride 99 Carbon Dioxide 22 Anion Gap 9 BUN 17 Creatinine 0.68 Est Cr Clr Drug Dosing 149.5 Est GFR ( Amer) 117.0 Est GFR (Non-Af Amer) 100.9 BUN/Creatinine Ratio 25.0 H Glucose 244 H POC Glucose 237 H Calcium 9.5 Diagnostic Findings On 09/03/2023, chart, orthopedic consultation, history and physical report reviewed. Labs reviewed and notable for normal blood counts, stable renal function, normal potassium, mild hyponatremia. Venous Doppler 08/30/2023 report reviewed: No DVT within the left lower extremity. C-spine MRI report reviewed from 08/30/2023: Critical spinal canal stenosis at C3- 4 and C4-5 with severe stenosis at C5-6. Advanced disc degeneration at multiple levels in the cervical spine. Concern for cord edema at C3-4 level. Medications Administered Current Inpatient Medications Atorvastatin Calcium (Atorvastatin 40 Mg Tab) 40 mg PO HS LANCE Stop: 09/29/23 20:59 Last Admin: 09/02/23 20:25 Dose: 40 mg Bupropion HCl (Bupropion Sr 150 Mg Tabcr) 150 mg PO BID LANCE Stop: 09/29/23 08:59 Last Admin: 09/03/23 09:22 Dose: 150 mg Dextrose (Dextrose 50% 50 Ml Syringe) 25 - 50 ml IV UD PRN; Protocol PRN Reason: Hypoglycemia Protocol Stop: 09/29/23 07:44 Docusate Sodium (Docusate Sodium 100 Mg Cap) 100 mg PO BID LANCE Stop: 09/30/23 20:59 Last Admin: 09/03/23 09:22 Dose: 100 mg Glucagon (Glucagon For Inj 1 Mg Vial) 1 mg SQ UD PRN; Protocol PRN Reason: Hypoglycemia Protocol Stop: 09/29/23 07:44 Glucose (Glucose 10 Tab/Tube) 4 - 8 tab PO UD PRN; Protocol PRN Reason: Hypoglycemia Treatment Stop: 09/29/23 07:44 Glucose (Glucose 40% Gel 15 Gm Tube) 15 - 30 gm PO UD PRN; Protocol PRN Reason: Hypoglycemia Protocol Stop: 09/29/23 07:44 Heparin Sodium (Porcine) (Heparin Sod 5,000 Unit/0.5 Ml Vial) 5,000 units SQ Q12 LANCE Stop: 10/01/23 20:59 Last Admin: 09/03/23 09:23 Dose: Not Given Promethazine HCl 12.5 mg/ (Sodium Chloride) 50.5 mls @ 202 mls/hr IV Q6H PRN PRN Reason: Nausea And Vomiting Stop: 09/29/23 04:18 Last Infusion: 09/02/23 20:53 Dose: Infused Dexamethasone 4 mg/ Syringe 1 mls @ 1 mls/min IV Q6H LANCE Stop: 10/03/23 09:59 Last Admin: 09/03/23 10:04 Dose: 1 mls/min Insulin Aspart (Insulin Aspart Per Unit Charge) 0 units SC ACHS [facility] Stop: 09/29/23 07:44 Last Admin: 09/03/23 13:55 Dose: 15 units Insulin Glargine (Lantus Per Unit Charge) 0 units SQ HS [facility]; Protocol Stop: 09/03/23 21:01 Lisinopril (Lisinopril 10 Mg Tab) 10 mg PO DAILY LANCE Stop: 09/29/23 08:59 Last Admin: 09/03/23 09:22 Dose: 10 mg Methocarbamol (Methocarbamol 750 Mg Tablet) 750 mg PO HS [facility] Stop: 09/29/23 20:59 Last Admin: 09/02/23 20:24 Dose: 750 mg Metoclopramide HCl (Metoclopramide Hcl 10 Mg Tablet) 10 mg PO BID [facility] Stop: 09/29/23 08:59 Last Admin: 09/03/23 09:22 Dose: 10 mg Metoprolol Tartrate (Metoprolol Tartrate 25 Mg Tab) 25 mg PO BID [facility] Stop: 09/29/23 08:59 Last Admin: 09/03/23 09:22 Dose: 25 mg Miscellaneous (Carbohydrates For Hypoglycemia ) 15 - 30 gm PO UD PRN PRN Reason: Hypoglycemia Protocol Stop: 09/29/23 07:44 Miscellaneous Information (Pharmacy Glycemic Mgmt Consult) 1 each N/A UD PRN; Protocol PRN Reason: Consult Stop: 10/03/23 09:11 Morphine Sulfate (Morphine Sulfate 4 Mg/Ml 1 Ml Carp\Vial) 4 mg IV Q4H PRN PRN Reason: Pain Stop: 09/13/23 04:55 Last Admin: 09/03/23 09:25 Dose: 4 mg Multivitamins (Multivitamin Tab) 1 tab PO DAILY [facility] Stop: 09/29/23 08:59 Last Admin: 09/03/23 09:22 Dose: 1 tab Oxycodone HCl (Oxycodone Hcl Ir 5 Mg Tab (Immediate Release)) 5 - 10 mg PO QID PRN PRN Reason: Pain Stop: 09/13/23 04:55 Last Admin: 09/03/23 04:28 Dose: 10 mg Pantoprazole Sodium (Pantoprazole 40 Mg Tab) 40 mg PO DAILY [facility] Stop: 09/29/23 08:59 Last Admin: 09/03/23 09:22 Dose: 40 mg Polyethylene Glycol (Polyethylene (Miralax) 17 Gm Pack) 17 gm PO DAILY PRN PRN Reason: Constipation Stop: 09/30/23 16:14 Last Admin: 09/02/23 08:01 Dose: 17 gm Ropinirole HCl (Ropinirole Hcl 0.25 Mg Tablet) 0.5 mg PO HS LANCE Stop: 09/29/23 20:59 Last Admin: 09/02/23 20:25 Dose: 0.5 mg Zolpidem Tartrate (Zolpidem Tartrate 5 Mg Tab) 5 mg PO HS PRN PRN Reason: Sleep Stop: 09/29/23 07:44 Last Admin: 09/02/23 20:23 Dose: 5 mg PG Care Time/CCT Total # of Minutes Spent Total Time Spent with Patient: Total time spent is greater than 50% in coordination of care (as documented) at patient's floor/unit and/or counseling patient: Coding Level of Care Code 87584 INT INP/OBS CARE 2/55MIN Diagnoses CAD (coronary artery disease) I25.10 History of MS (myocardial infarction) I25.2 History of heart artery stent Z95.5 Hypertension I10 Hyperlipidemia E78.5 Preop cardiovascular exam Z01.810
--- NOTE | 2023-09-03 16:42 | Hospitalist Progress Note ---
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 Patient landed on his left side resulting in head trauma -no LOC, has left- sided pain. Of note, patient has chronic numbness on his all 4 extremities secondary to his cervical myelopathy for which he has elective surgery contemplated next week. He is being managed for the following: Fall Left leg pain, likely traumatic Rule out bony injury CT head, left hip x-ray, bilateral knee x-ray, left tibia fibula x-ray with no fracture. CT C-spine and MRI C-spine with chronic findings. Due to left calf pain, will get US venous Doppler to rule out DVT. neg for dvt Pain management, PT/OT. likely will need rehab due to fxnal decline. Likely secondary to cervical myelopathy, expect to improve after cervical spine surgery schedule 09/04. History of cervical myelopathy: MRI C-spine noted, orthospine evaluated, for cervical spine surgery tomorrow. Will put him on dexamethasone to help with cervical spine decompression. Other chronic medical conditions: Continue with/resume home meds as and when able. hx CAD status post stent hypertension, BP fairly under control hyperlipidemia on statin Rx, continue Cervical cord edema/stenosis on MRI, hx cervical myelopathy, chronic findings as per ER provider discussion with [facility] surgeon DM2 insulin requiring, unknown baseline control. A1c of 6.9 this admission. Glycemic pharmacy consult as patient on steroid. mood disorder, stable on bupropion past tobacco abuse DVT prophylaxis. heparin sc Full code Patient brother Mr. Roscoe Zazueta, contact #[phone]. Text document was generated using [employer] voice recognition software. It may contain grammatical or spelling errors. Kindly contact undersigned for clarification of any documentation item in question. Admission and Anticipated Discharge Date Admission Date: August 31, 2023 Subjective Patient was seen and examined at bedside. Patient was lying in bed, on room air, resting comfortably, not in any acute distress. Patient reports pain not improving very well, patient is still not able to ambulate, has constipation, will give additional dose of lactulose today. Patient reports diet okay and c/w bowel regimen. N.p.o. midnight for possible cervical spine surgery tomorrow. Physical Exam Physical Exam: GENERAL: NAD, pleasant, obese, no respiratory distress SKIN: Normal color, warm HEENT: [place] palpebral conjunctivae, no ptosis, dry buccal mucosa NECK : Cervical collar in place, no overt tenderness CHEST : CTA, no tenderness HEART : RRR, no obvious murmurs ABDOMEN: Some distention, nontender EXTREMITIES : No LE swelling, LLE tenderness, no other conspicuous deformities noted NEUROLOGIC : Coherent, no facial asymmetry, moves extremities. LUE 4/5; LLE 3/5. Results & Data Results & Data Vital Signs (Past 12 Hours) Vital Signs Temp Pulse Resp BP Pulse Ox O2 Del Method 09/03/23 14:55 36.4 C L 90 18 126/73 91 Room Air 09/03/23 08:14 36.7 C 83 18 135/77 93 Room Air
--- NOTE | 2023-09-03 19:04 | Electrocardiogram Report ---
Test Reason : Blood Pressure : / mmHG Vent. Rate : 093 BPM Atrial Rate : 093 BPM P-R Int : 196 ms QRS Dur : 092 ms QT Int : 342 ms P-R-T Axes : 024 043 047 degrees QTc Int : 425 ms Normal sinus rhythm Normal ECG No previous ECGs available Confirmed by Wenceslao Rothman ([id number]) on 09/03/2023 7:04:37 PM Referred By: REFERRED SELF Confirmed By:Wenceslao Rothman
[2023-09-03] MEDS: LANTUS PER UNIT CHARGE SQ SCH (21:30)
[2023-09-04] MEDS ORDERED: Nursing to Pharmacy Communication SCH ×2 (03:30→16:45)
[2023-09-04] MEDS: INSULIN ASPART PER UNIT CHARGE SC SCH ×2 (05:26→17:07)
--- NOTE | 2023-09-04 06:57 | Anesthesiology Consultation ---
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 Surgery Operation Date: 09/04/23 08:30 Proposed Procedures p C4 Corpectomy, C5-C6 Anterior Cervical Discectomy Fusion, Spinal Cord Monitoring - Celestine Webb DO Height/Weight Height: 6 ft 3 in Weight: 114 kg Allergies Allergy/AdvReac Type Severity Reaction Status Date / Time No Known Allergies Allergy Verified 08/30/23 07:13 Medications Home Medications Medication Instructions Recorded Confirmed Last Taken aspirin 81 mg tablet,delayed 81 mg PO DAILY 08/30/23 08/30/23 08/29/23 release atorvastatin 40 mg tablet 40 mg PO HS 08/30/23 08/30/23 08/28/23 bupropion HCl 150 mg tablet,12 hr 150 mg PO BID 08/30/23 08/30/23 08/29/23 08:00 sustained-release cholecalciferol (vitamin D3) 50 50 mcg PO DAILY 08/30/23 08/30/23 08/29/23 mcg (2,000 unit) capsule (Vitamin D3) coenzyme Q10 100 mg capsule 100 mg PO DAILY 08/30/23 08/30/23 08/29/23 (CoQ-10) dulaglutide 1.5 mg/0.5 mL 1.5 mg subcut WK 08/30/23 08/30/23 08/26/23 subcutaneous pen injector (Trulicity) empagliflozin 25 mg tablet 25 mg PO DAILY 08/30/23 08/30/23 08/29/23 (Jardiance) insulin lispro protamine-lispro See Rx Instructions .Route .COMPLEX 08/30/23 08/30/23 08/29/23 08:00 100 unit/mL (75-25) subcutaneous pen (Humalog Mix 75-25 KwikPen) lisinopril 10 mg tablet 10 mg PO DAILY 08/30/23 08/30/23 08/29/23 meloxicam 15 mg tablet 15 mg PO DAILY 08/30/23 08/30/23 08/29/23 metformin 1,000 mg tablet 1,000 mg PO BID 08/30/23 08/30/23 08/29/23 08:00 methocarbamol 750 mg tablet 750 mg PO HS 08/30/23 08/30/23 08/28/23 metoclopramide HCl 10 mg tablet 10 mg PO BID 08/30/23 08/30/23 08/29/23 (Reglan) metoprolol tartrate 25 mg tablet 25 mg PO BID 08/30/23 08/30/23 08/29/23 08:00 multivitamin 1 tab PO DAILY 08/30/23 08/30/23 08/29/23 omeprazole 40 mg capsule,delayed 40 mg PO DAILY 08/30/23 08/30/23 08/29/23 release ropinirole 0.5 mg tablet 0.5 mg PO HS 08/30/23 08/30/23 08/28/23 zolpidem 5 mg tablet 5 mg PO HS PRN Sleep 08/30/23 08/30/23 Unknown Active Medications Generic Name Dose Route Start Last Admin Trade Name Freq PRN Reason Stop Dose Admin Atorvastatin Calcium 40 mg 08/30/23 21:00 09/03/23 21:17 Atorvastatin 40 Mg Tab PO 09/29/23 20:59 40 mg HS LANCE Administration Bupropion HCl 150 mg 08/30/23 09:00 09/03/23 21:16 Bupropion Sr 150 Mg Tabcr PO 09/29/23 08:59 150 mg BID LANCE Administration Docusate Sodium 100 mg 08/31/23 21:00 09/03/23 21:17 Docusate Sodium 100 Mg Cap PO 09/30/23 20:59 100 mg BID LANCE Administration Heparin Sodium (Porcine) 5,000 units 09/01/23 21:00 09/03/23 23:17 Heparin Sod 5,000 Unit/0.5 Ml Vial SQ 10/01/23 20:59 Not Given Q12 LANCE Promethazine HCl 12.5 mg/ 50.5 mls @ 202 mls/hr 08/30/23 04:19 09/02/23 20:53 Sodium Chloride IV 09/29/23 04:18 Infused Q6H PRN Infusion Nausea And Vomiting Dexamethasone 4 mg/ Syringe 1 mls @ 1 mls/min 09/03/23 10:00 09/04/23 03:34 IV 10/03/23 09:59 1 mls/min Q6H LANCE Administration Insulin Aspart 0 units 09/04/23 06:00 09/04/23 05:26 Insulin Aspart Per Unit Charge SC 10/04/23 05:59 4 units Q6 LANCE Administration Lisinopril 10 mg 08/30/23 09:00 09/03/23 09:22 Lisinopril 10 Mg Tab PO 09/29/23 08:59 10 mg DAILY LANCE Administration Methocarbamol 750 mg 08/30/23 21:00 09/03/23 21:23 Methocarbamol 750 Mg Tablet PO 09/29/23 20:59 750 mg HS LANCE Administration Metoclopramide HCl 10 mg 08/30/23 09:00 09/03/23 21:24 Metoclopramide Hcl 10 Mg Tablet PO 09/29/23 08:59 10 mg BID LANCE Administration Metoprolol Tartrate 25 mg 08/30/23 09:00 09/03/23 21:24 Metoprolol Tartrate 25 Mg Tab PO 09/29/23 08:59 25 mg BID LANCE Administration Morphine Sulfate 4 mg 08/30/23 04:56 09/03/23 21:27 Morphine Sulfate 4 Mg/Ml 1 Ml Carp\Vial IV 09/13/23 04:55 4 mg Q4H PRN Administration Pain Multivitamins 1 tab 08/30/23 09:00 09/03/23 09:22 Multivitamin Tab PO 09/29/23 08:59 1 tab DAILY LANCE Administration Oxycodone HCl 5 - 10 mg 08/30/23 04:56 09/04/23 05:30 Oxycodone Hcl Ir 5 Mg Tab (Immediate Release) PO 09/13/23 04:55 10 mg QID PRN Administration Pain Pantoprazole Sodium 40 mg 08/30/23 09:00 09/03/23 09:22 Pantoprazole 40 Mg Tab PO 09/29/23 08:59 40 mg DAILY LANCE Administration Polyethylene Glycol 17 gm 08/31/23 16:15 09/02/23 08:01 Polyethylene (Miralax) 17 Gm Pack PO 09/30/23 16:14 17 gm DAILY PRN Administration Constipation Ropinirole HCl 0.5 mg 08/30/23 21:00 09/03/23 21:26 Ropinirole Hcl 0.25 Mg Tablet PO 09/29/23 20:59 0.5 mg HS LANCE Administration Zolpidem Tartrate 5 mg 08/30/23 07:45 09/03/23 21:27 Zolpidem Tartrate 5 Mg Tab PO 09/29/23 07:44 5 mg HS PRN Administration Sleep NPO Date Last Intake of Fluids: 09/04/23 Time Last Intake of Fluids: 05:30 Last Intake of Fluids Comment: small sip with pill Date Last Intake of Solids: 09/03/23 Time Last Intake of Solids: 22:00 Past Medical History Medical History History of [place] (myocardial infarction) 2006 status post stent Diabetes mellitus Type II requiring insulin Past use of tobacco Mood disorder Cervical cord compression with myelopathy Cervical spinal stenosis Hypertension Hyperlipidemia CAD (coronary artery disease) Past Surgical History Surgical History History of sinus surgery History of knee surgery History of laparoscopic cholecystectomy History of heart artery stent 2006 Social History Smoking Status: Never smoker Hx Alcohol Use: No Hx Substance Use: No Physical Exam Vital Signs Last Vital Signs Temp 97.9 F 09/03/23 19:39 Pulse 89 09/03/23 19:39 Resp 18 09/03/23 19:39 BP 140/73 09/03/23 19:39 Pulse Ox 96 09/03/23 19:39 O2 Del Method Room Air 09/03/23 19:39 Testing Laboratory Results 09/03/23 08:57 09/03/23 08:57 Hemoglobin A1c 6.9 % (4.5-5.6) H 08/30/23 03:50 09/04/23 09/03/23 05:22 21:12 POC Glucose 192 H 183 H Electrocardiogram Date: 09/03/23 Findings: + NSR @ (93 bpm) Cervical Spine Date: 08/30/23 IMPRESSION: 1. Advanced disc degeneration at C3-4, C4-5, C5-6, C6-7 and C7-T1 and moderate disc degeneration at C2-3 with annular disc bulging flattening the ventral thecal sac and flattening the ventral cord at C3-4, C4-5 and C5-6 with increased cord signal at C3-4 concern for cord edema. Recommend neurosurgical consult for decompression. 2. There is a critical spinal canal stenosis at C3-4 and C4-5 with severe stenosis at C5-6. 3. The neural foramina are poorly visualized secondary to motion artifact. 4. There is minimal to advanced facet joint arthropathy with mild to advanced synovitis, most significant at C4-5. 5. No evidence of fracture, infection or tumor.
[2023-09-04] MEDS ORDERED: ATROPINE SULFATE 0.1 MG/ML 10ML SYR IV PRN (07:00)
[2023-09-04] MEDS ORDERED: ONDANSETRON INJ 2 MG/ML 2 ML VIAL IV PRN ×2 (07:00→12:46)
[2023-09-04] MEDS ORDERED: fentaNYL citrate PF 100 MCG/2 ML VIAL IV PRN (07:00)
[2023-09-04] MEDS ORDERED: ePHEDrine sulfate 50 MG/ML AMP IV PRN (07:00)
[2023-09-04] MEDS ORDERED: fentaNYL citrate PF 100 MCG/2 ML VIAL ONE (07:10)
[2023-09-04] MEDS ORDERED: MIDAZOLAM HCL 1 MG/ML 2ML VIAL ONE (07:10)
[2023-09-04] MEDS ORDERED: LIDOCAINE 2% 2 ML VIAL/AMP(20MG/ML) INFIL ONE (07:26)
[2023-09-04] MEDS ORDERED: ONDANSETRON INJ 2 MG/ML 2 ML VIAL ONE (07:26)
[2023-09-04] MEDS ORDERED: PROPOFOL IV EMULSION 10 MG/ML 20 ML VIAL IV ONE (07:26)
[2023-09-04] MEDS ORDERED: ROCURONIUM BROMIDE 10 MG/ML 5 ML VIAL IV ONE ×3 (07:26→09:32)
[2023-09-04] MEDS ORDERED: LANTUS PER UNIT CHARGE SC ONE (07:30)
--- NOTE | 2023-09-04 08:13 | History & Physical Bridge Note ---
Date of Service September 04, 2023 History & Physical Bridge Note I have examined the patient, reviewed the History & Physical and in the interval since the performance of the History & Physical I have noted the following changes of clinical significance: Patient has advanced cervical myelopathy with cord edema and neurologic deficits. I am recommending urgent C4 corpectomy with anterior cervical discectomy and fusion C5-C6
[2023-09-04] MEDS: ceFAZolin 2000MG 2,000 MG/15 ML SYR IV SCH ×2 (08:30→18:06)
[2023-09-04] MEDS: ceFAZolin 2,000 MG/15 ML IV PUSH IV ONE (08:42)
[2023-09-04] MEDS ORDERED: HYDROmorphone INJ 2 MG/ML SYR/VIAL ONE (09:07)
[2023-09-04] MEDS: ceFAZolin 330 MG/ML 1 GM VIAL ONE (09:26)
[2023-09-04] MEDS ORDERED: LABETALOL HCL IV 5 MG/ML 20ML IV ONE ×3 (09:28→09:29)
[2023-09-04] MEDS ORDERED: SUGAMMADEX SODIUM 200 MG/2 ML VIAL IV ONE (10:05)
[2023-09-04] MEDS: FLOSEAL HEMOSTATIC MATRIX 10ML TOP ONE (10:48)
--- NOTE | 2023-09-04 11:01 | Operative Report ---
Post Operative Report Pre & Post Diagnosis Operation Date: 09/04/23 08:30 Pre-Op Diagnosis: Advanced Cervical Myelopathy with Cord Edema and Neurologic Deficits Post-Op Diagnosis: Advanced Cervical Myelopathy with Cord Edema and Neurologic Deficits I identified the patient and participated in the time-out.: Yes Procedure Operation Date: 09/04/23 08:30 Actual Procedures #1 anterior cervical rectum and bilateral foraminotomies C4. #2 anterior cervical discectomy with bilateral foraminotomies C5-C6. #3 anterior cervical arthrodesis C3-C5 and C5-C6. #4 placement of peek cage 23 mm in height at C3-C5 and 8 mm height at C5-C6. #5 placement locally harvested morselized autograft combined with I factor interbody space. #6 application of K2 M plate and screws from C3 to see 6. Surgeon Celestine Webb, Auto Polisher Jazzy Caro Estimated Blood Loss 50 Findings Consistent with Post-Op Diagnosis Specimens None Indications This is a 63-year-old male presents the hospital with a marked decline in neurologic status after a fall. I was consulted yesterday afternoon after examining the patient and reviewing his MRI I recommended urgent cervical decompression to prevent further neurologic decline. Description of Procedure Patient met with identified informed was obtained. Patient was then taken to the operative suite underwent patient placed in a supine position jacks table with head Berry lateral. Operative prominences well-padded eyes inspected to ensure no external pressure placed upon the. This point the anterior cervical spine was prepped and draped in a sterile fashion. The assistance of fluoroscopy defy the C4 vertebral body and a transverse incision was placed along the right anterior aspect the cervical spine overlying his region. Blunt dissection with the assistance of bipolar Cardizem form down to expose the anterior cervical spine from C3-C6. Self-retaining retractors placed. Then performed a complete discectomy of C3-C4 out to the uncovertebral joints bilaterally followed by C4-C5. [place] distracting pins were then placed in C3 and C5 distract across the C4 vertebral body. Complete corpectomy of C4 was performed including bilateral medial facetectomies and foraminotomies to completely decompress the canal. The endplates were then burred to subcortical bleeding bone and a 23 mm peek cage filled locally harvested morselized autograft and I factor tapped in position. Then proceeded to C5-C6. Again complete discectomy performed out to the uncovertebral's bilaterally. [place] distracting pins again utilized. Performed bilateral foraminotomies I removed all posterior fibers performed bilateral foraminotomies for complete decom pression. Endplates were then burred to subcortical bleeding bone and 8 mm peek cage filled locally harvested morselized graft and I factor tapped position. Distracting apparatus was removed and all anterior osteophytes burred to a smooth cortical surface and a K2 M plate and screws applied with the assistance of fluoroscopy. The incision was then copiously irrigated explored to ensure no damage surrounding structures remaining bleeding. 10 round MARY drain inserted. The incision was then closed with 2 Vicryl in a fashion of 4 Monocryl for final closure. Steri-Strips sterile dressing placed. Patient waken taken to PACU in stable condition. Please note spinal cord monitoring was utilized at the procedure no changes noted. Lastly Jazzy Caro was present at the entire surgery and all the patient positioning complex portion of the surgery and final skin closure. I attest to the content of the Intraoperative Record and any orders documented therein. Any exceptions are noted below.
--- NOTE | 2023-09-04 11:28 | Fluoroscopy Report ---
FL cervical 2-3V CLINICAL HISTORY: C4 CORPECTOMY, C5-C6 ACDF TECHNIQUE: 2 views were obtained with the C-arm in the OR with the above procedure. Total fluoroscopy time was 12.4 seconds. Radiation dose was 1.4 mGy. Comparison: Comparison is made to MRI cervical spine 08/30/2023 FINDINGS/IMPRESSION: Intraoperative images were obtained of C4 corpectomy and ACDF spanning C5-C6. Please correlate with intraoperative fluoroscopy and operative report. ACT 112: Negative or not required by law. Electronically signed by: Chaparro Lopez M.D. 09/04/2023 11:27 AM
[2023-09-04] MEDS: hydrALAZINE HCL 20 MG/ML VIAL IV ONE (11:53)
--- NOTE | 2023-09-04 12:31 | Anesthesiology Progress Note ---
Date of Service September 04, 2023 Anesthesia Post Procedure Vital Signs Vital Signs: Temp Pulse Pulse Resp BP BP Pulse Ox 09/04/23 12:25 98.2 F 90 15 154/81 H 92 09/04/23 12:15 98.2 F 91 H 14 162/82 H 92 09/04/23 12:05 92 H 16 166/83 H 94 09/04/23 11:55 90 13 172/86 H 95 09/04/23 11:45 93 H 12 178/83 H 94 09/04/23 11:35 92 H 14 175/86 H 95 09/04/23 11:25 89 12 181/98 H 94 09/04/23 11:16 97.9 F 88 13 175/97 H 95 09/04/23 07:49 97.9 F 84 20 143/80 H 92 09/03/23 19:39 97.9 F 89 18 140/73 96 09/03/23 14:55 97.5 F L 90 18 126/73 91 O2 Del Method O2 Flow Rate 09/04/23 12:25 Nasal Cannula 4 09/04/23 12:15 Nasal Cannula 4 09/04/23 12:05 Nasal Cannula 4 09/04/23 11:55 Nasal Cannula 4 09/04/23 11:45 Nasal Cannula 4 09/04/23 11:35 Nasal Cannula 4 09/04/23 11:25 Oxymask 5 09/04/23 11:16 Oxymask 5 09/04/23 07:49 Room Air 09/03/23 19:39 Room Air 09/03/23 14:55 Room Air Pain Intensity Head: Pain Intensity: 7 Left Leg: Pain Intensity: 6 Neck: Pain Intensity: 5 Transfer of Care Handoff Completed per policy Notes Mental Status: alert / awake / arousable and participated in evaluation Patient Amnestic to Procedure: Yes Nausea / Vomiting: adequately controlled Pain: adequately controlled Airway Patency, RR, SpO2: stable & adequate BP & HR: stable & adequate Hydration State: stable & adequate Anesthetic Complications: no major complications apparent and Pt Satisfied with anesthetic care
[2023-09-04] MEDS ORDERED: ALUMINUM/MAGNESIUM SUSP 30 ML UDC PO PRN (12:46)
[2023-09-04] MEDS ORDERED: SOD PHOSPHATE/SOD BIPHOSPHATE ENEMA 132 ML BTL PR PRN (12:46)
[2023-09-04] MEDS ORDERED: DO NOT ADMINISTER PNEUMOCOCCAL VACCINE PRN (12:46)
[2023-09-04] MEDS ORDERED: DO NOT ADMINISTER FLU VACCINE PRN (12:46)
[2023-09-04] MEDS ORDERED: diphenhydrAMINE Capsule 25 MG CAP PO PRN (12:46)
[2023-09-04] MEDS ORDERED: FAMOTIDINE 20 MG TAB PO PRN (12:46)
[2023-09-04] MEDS ORDERED: bisacodyL 10 MG SUPP PR PRN (12:46)
[2023-09-04] MEDS ORDERED: MAGNESIUM HYDROXIDE SUSP 30 ML UDC PO PRN (12:46)
[2023-09-04] MEDS ORDERED: ONDANSETRON 4 MG OD TAB PO PRN (12:46)
[2023-09-04] MEDS ORDERED: METOCLOPRAMIDE HCL INJ 5 MG/ML 2 ML VIAL IV PRN (12:46)
[2023-09-04] MEDS ORDERED: PROMETHAZINE HCL 12.5 MG in SODIUM CHLORIDE 0.9% 50 ML IV PRN (12:46)
[2023-09-04] MEDS ORDERED: LORazepam 0.5 MG in SYRINGE 0.25 ML IV PRN (12:46)
[2023-09-04] MEDS ORDERED: RACEPINEPHRINE 2.25% NEBU SOLN 0.5 ML VIAL INH PRN (12:46)
[2023-09-04] MEDS ORDERED: hydrOXYzine HCl 25 MG TAB PO PRN (12:46)
[2023-09-04] MEDS ORDERED: ACETAMINOPHEN 1,000 MG/100 ML VIAL IV PRN (12:46)
[2023-09-04] MEDS ORDERED: LORazepam 0.5 MG TAB PO PRN (12:46)
[2023-09-04] MEDS ORDERED: NALOXONE HCL 0.4 MG/1 ML VIAL/CARP IV PRN (12:46)
[2023-09-04] MEDS ORDERED: dexAMETHasone 8 MG in SYRINGE 0 ML IV PRN (12:46)
[2023-09-04] MEDS: SODIUM CHLORIDE 0.9% 1,000 ML IV SCH (13:02)
[2023-09-04] MEDS: dexAMETHasone 8 MG in SYRINGE 0 ML IV SCH (13:37)
[2023-09-04] MEDS: LANTUS PER UNIT CHARGE SC ONE (13:38)
--- NOTE | 2023-09-04 14:04 | Pharmacy Report ---
Pharmacy Glycemic Short Note 2 - Date of Service September 04, 2023 - Glycemic Short BSG Results (Last 24 hours): 09/03/23 09/03/23 09/04/23 16:32 21:12 05:22 POC Glucose 164 H 183 H 192 H 09/04/23 09/04/23 09/04/23 07:50 11:19 13:17 POC Glucose 175 H 205 H 206 H OUTPATIENT ANTIDIABETIC REGIMEN: * Humalog 75/25 mix - 46 units SC qAM + 56 units SC qPM * Metformin 1 g PO BIDM * Jardiance 25 mg PO daily * Trulicity 1.5 mg SC weekly (Sundays) HbA1c: 6.9% (08/30/23) ASSESSMENT: 09/04: * BSGs [phone]/dL. Received 50 units of basal and 46 units of bolus insulin yesterday. * POD # 0 spinal surgery. Dexamethasone 4mg IV q6h transitioned to 8mg IV q8h. * Diet advanced from NPO to full liquids. * Lantus decreased given NPO status - 15 units X 1 this afternoon and an HS scale depending on BSG. No change to Novolog. 09/03: * BS is a 63 year old male who originally presented to ED on 08/30 w/ CC of head/neck/left leg pain following a fall * Orthopedics consulted - patient requiring urgent surgical intervention * C4 corpectomy, w/ cervical discectomy/fusion scheduled for tomorrow morning (09/04/23) * Dexamethasone 4 mg IV q6h initiated today - pharmacy consulted for glycemic management w/ initiation of steroids * Blood sugars well-controlled yesterday with 38 units of insulin (prior to steroids) * Given ~100 units of insulin/day reported at home in addition to other agents + initiation of steroids, I am anticipating significantly increased insulin needs upcoming. PLAN FOR INPATIENT GLYCEMIC CONTROL: * Hold outpatient oral diabetes medications * Basal insulin * Lantus 15 units SQ X 1 + HS scale (0/10/20 units) depending on BSG * Bolus insulin * NovoLog per scale ACHS or Q6hrs while NPO * Goal Range: Low 110 mg/dL - High 140 mg/dL * Correction Factor: 15 mg/dL/unit * Nutritional / Prandial insulin per carb ratio of 1 unit per 5 grams CHO consumed
[2023-09-04] MEDS: oxyCODONE HCL IR 5 MG TAB (IMMEDIATE RELEASE) PO PRN (15:17)
[2023-09-04] MEDS: traMADol HCL 50 MG TABLET PO PRN (17:04)
--- NOTE | 2023-09-04 17:08 | Hospitalist Progress Note ---
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 Patient landed on his left side resulting in head trauma -no LOC, has left- sided pain. Of note, patient has chronic numbness on his all 4 extremities secondary to his cervical myelopathy for which he has elective surgery contemplated next week. He is being managed for the following: Fall Left leg pain, likely traumatic Rule out bony injury CT head, left hip x-ray, bilateral knee x-ray, left tibia fibula x-ray with no fracture. CT C-spine and MRI C-spine with chronic findings. Due to left calf pain, got US venous Doppler to rule out DVT. neg for dvt Status post cervical spine surgery, will follow improvement. PT/OT and DVT prophylaxis per orthospine recommendation. Maintain bowel regimen. Follow H&H. History of cervical myelopathy: MRI C-spine noted, orthospine evaluated, status post cervical spine repair 09/04. follow improvement clinically. Other chronic medical conditions: Continue with/resume home meds as and when able. hx CAD status post stent hypertension, BP fairly under control hyperlipidemia on statin Rx, continue Cervical cord edema/stenosis on MRI, hx cervical myelopathy, chronic findings as per ER provider discussion with [facility] surgeon DM2 insulin requiring, unknown baseline control. A1c of 6.9 this admission. Glycemic pharmacy consult as patient on steroid. mood disorder, stable on bupropion past tobacco abuse DVT prophylaxis. heparin sc Full code Patient brother Mr. Roscoe Zazueta, contact #[phone]. Disposition: PT/OT, CM to assist with DC planning. Patient would like referral for orthopedics for his carpal tunnel surgery upon discharge. Text document was generated using [employer] voice recognition software. It may contain grammatical or spelling errors. Kindly contact undersigned for clarification of any documentation item in question. Admission and Anticipated Discharge Date Admission Date: August 31, 2023 Subjective Patient was seen and examined at bedside. Patient was lying in bed, on room air, resting comfortably, not in any acute distress. patient is a status post cervical spine repair, reports bearable operative site pain, yet to feel improvement in his radicular symptoms. Patient denies any new acute event overnight, denies any fever/headache/chest pain/abdominal pain. Physical Exam Physical Exam: GENERAL: NAD, pleasant, obese, no respiratory distress SKIN: Normal color, warm HEENT: [place] palpebral conjunctivae, no ptosis, dry buccal mucosa NECK : Cervical collar in place, no overt tenderness, clean dressing without soakage CHEST : CTA, no tenderness HEART : RRR, no obvious murmurs ABDOMEN: Some distention, nontender EXTREMITIES : No LE swelling, LLE tenderness, no other conspicuous deformities noted NEUROLOGIC : Coherent, no facial asymmetry, moves extremities. LUE 4/5; LLE 3/5. Results & Data Results & Data Vital Signs (Past 12 Hours) Vital Signs Temp Pulse Pulse Resp BP BP Pulse Ox 09/04/23 15:40 36.6 C 95 H 16 172/83 H 94 09/04/23 15:29 99 H 18 95 09/04/23 14:40 37.0 C 94 H 16 157/73 H 94 09/04/23 13:46 37.0 C 09/04/23 13:45 95 H 14 162/81 H 94 09/04/23 13:19 36.7 C 93 H 12 165/83 H 94 09/04/23 13:11 93 H 16 94 09/04/23 13:07 09/04/23 12:51 36.7 C 92 H 12 159/83 H 94 09/04/23 12:25 36.8 C 90 15 154/81 H 92 09/04/23 12:15 36.8 C 91 H 14 162/82 H 92 09/04/23 12:05 92 H 16 166/83 H 94 09/04/23 11:55 90 13 172/86 H 95 09/04/23 11:45 93 H 12 178/83 H 94 09/04/23 11:35 92 H 14 175/86 H 95 09/04/23 11:25 89 12 181/98 H 94 09/04/23 11:16 36.6 C 88 13 175/97 H 95 09/04/23 07:49 36.6 C 84 20 143/80 H 92 Pulse Ox O2 Del Method O2 Del Method O2 Flow Rate O2 Flow Rate 09/04/23 15:40 Room Air 09/04/23 15:29 Nasal Cannula 3 09/04/23 14:40 Nasal Cannula 3 09/04/23 13:46 09/04/23 13:45 Nasal Cannula 3 09/04/23 13:19 Nasal Cannula 3 09/04/23 13:11 Nasal Cannula 3 09/04/23 13:07 94 Nasal Cannula 3 09/04/23 12:51 Nasal Cannula 3 09/04/23 12:25 Nasal Cannula 4 09/04/23 12:15 Nasal Cannula 4 09/04/23 12:05 Nasal Cannula 4 09/04/23 11:55 Nasal Cannula 4 09/04/23 11:45 Nasal Cannula 4 09/04/23 11:35 Nasal Cannula 4 09/04/23 11:25 Oxymask 5 09/04/23 11:16 Oxymask 5 09/04/23 07:49 Room Air
[2023-09-04] MEDS: ACETAMINOPHEN 500 MG TAB PO PRN (19:34)
[2023-09-04] MEDS: DOCUSATE SODIUM/SENNA 50/8.6MG TAB PO SCH (21:25)
[2023-09-04] MEDS: LANTUS PER UNIT CHARGE SC SCH (21:38)
[2023-09-04] MEDS: HYDROmorphone INJ 1 MG/ML SYRINGE IV PRN (21:39)
[2023-09-05] MEDS: POLYETHYLENE (MIRALAX) 17 GM PACK PO SCH (05:42)
[2023-09-05 07:08] LABS: Basophils # (auto) 0.01 K/uL (0.00-0.20); Basophils % (auto) 0.1 %; Hemoglobin 12.9 g/dl (14.0-18.0); Immature Granulocytes % (auto) 0.7 %; Lymphocytes # (auto) 1.75 K/uL (1.20-3.40); Lymphocytes % (auto) 13.1 %; Mean Corpuscular Hemoglobin 28.1 pg (25.0-34.0); Mean Corpuscular Hgb Conc 33.1 g/dL (32.0-36.0); Mean Platelet Volume 10.6 fL (9.4-12.4); Monocytes # (auto) 0.97 K/uL (0.11-0.59); Monocytes % (auto) 7.3 %; Neutrophils # (auto) 10.51 K/uL (1.40-6.50); Neutrophils % (auto) 78.8 %; Platelet Count 237 K/uL (130-400); RDW Coefficient of Variation 13.9 % (11.5-14.5); Red Blood Count 4.59 M/uL (4.70-6.10); White Blood Count 13.34 K/ul (4.8-10.8)
[2023-09-05] MEDS: COUGH DROP (SUGAR FREE) LOZ 24 LOZ/1 BOX BUCCAL ONE (07:38)
--- NOTE | 2023-09-05 08:37 | Hospitalist Progress Note ---
Date of Service September 05, 2023 Assessment & Plan (1) Leg pain, left: Plan Mr. 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 Patient landed on his left side resulting in head trauma -no LOC, has left-sided pain. Of note, patient has chronic numbness on his all 4 extremities secondary to his cervical myelopathy for which he had elective surgery planned. He is being managed for the following: #Cervical cord compression with myelopathy s/p surgical intervention #Cervical Stenosis MRI C-spine cord edema noted Pain consulted: recommended surgical intervention [facility]ospine evaluated, status post cervical spine repair 09/04. Now, POD 1 -#1 anterior cervical rectum and bilateral foraminotomies C4. #2 anterior cervical discectomy with bilateral foraminotomies C5-C6. #3 anterior cervical arthrodesis C3-C5 and C5-C6. #4 placement of peek cage 23 mm in height at C3-C5 and 8 mm height at C5-C6. #5 placement locally harvested morselized autograft combined with I factor interbody space. #6 application of K2 M plate and screws from C3 to C6. PT/OT: Acute rehab Bowel regimen in place Oxy 5-10mg q4h prn, schedule tylenol, tramdol, Dilaudid breakthrough #Mechanical Fall #Left leg pain, likely traumatic Rule out bony injury CT head, left hip x-ray, bilateral knee x-ray, left tibia fibula x-ray with no fracture. CT C-spine and MRI C-spine with chronic findings. Due to left calf pain, US venous Doppler to rule out DVT:negative Plan for rehab #Acute blood loss anemia 2/2 post-operative losses Preop Hgb 14.8, post op 12.9 EBL 50cc intraop, MARY drain in place Trend hgb, transfuse <7.0 MARY management per Ortho service Other chronic medical conditions: Continue with/resume home meds as and when able. #hx CAD status post stent #hypertension, BP fairly under control -Metoprolol 25mg BID, lisinopril 10mg daily #hyperlipidemia on statin Rx, continue #DM2 insulin requiring, unknown baseline control. A1c of 6.9 this admission. Glycemic pharmacy consult as patient on steroid. #mood disorder, stable on bupropion #past tobacco abuse DVT prophylaxis. SCDs Full code Patient brother Mr. Roscoe Zazueta, contact #[phone]. Disposition: PT/OT, CM to assist with DC planning. Plan for dispo to [facility] Admission and Anticipated Discharge Date Admission Date: August 31, 2023 Subjective Patient evaluated at bedside Notes pain overall improved since presentation Denies BM at this time Notes that he hasn't moved yet, and has reservations with PT but will try Physical Exam Constitutional: WD/WN, vitals as above Neck: [place] J in place, J drain with sanguinous discharge Cardiovascular: RRR, no murmur, no edema Gastrointestinal (Abdomen): normal bowel sounds, soft, nontender, no hepatosplenomegaly Musculoskeletal: no cyanosis or clubbing, extremities motor strength 5/5 Results & Data Results & Data Vital Signs (Past 12 Hours) Vital Signs Temp Pulse Resp BP Pulse Ox O2 Del Method O2 Flow Rate 09/05/23 08:15 83 16 94 Room Air 09/05/23 07:00 36.8 C 74 18 146/88 H 97 Nasal Cannula 1 09/05/23 05:57 73 18 97 Nasal Cannula 2 09/05/23 05:21 36.5 C 73 16 153/86 H 95 Room Air 09/05/23 02:07 63 18 95 Nasal Cannula 2 09/05/23 01:30 36.6 C 79 16 151/66 H 96 Room Air 09/04/23 22:04 87 18 96 Nasal Cannula 3 09/04/23 21:13 37.0 C 81 14 105/60 95 Room Air Laboratory Results Short CBC 09/05/23 Range/Units 06:14 WBC 13.34 H (4.8-10.8) K/ul Hgb 12.9 L (14.0-18.0) g/dl Hct 39.0 L (42.0-52.0) % Plt Count 237 (130-400) K/uL BMP 09/05/23 06:14 Sodium 132 L Potassium 4.4 Chloride 100 Carbon Dioxide 24 BUN 17 Creatinine 0.50 L Glucose 196 H Calcium 9.1 Medications Administered Home Medications Medication Instructions Recorded Confirmed Last Taken aspirin 81 mg tablet,delayed 81 mg PO DAILY 08/30/23 08/30/23 08/29/23 release atorvastatin 40 mg tablet 40 mg PO HS 08/30/23 08/30/23 08/28/23 bupropion HCl 150 mg tablet,12 hr 150 mg PO BID 08/30/23 08/30/23 08/29/23 08:00 sustained-release cholecalciferol (vitamin D3) 50 50 mcg PO DAILY 08/30/23 08/30/23 08/29/23 mcg (2,000 unit) capsule (Vitamin D3) coenzyme Q10 100 mg capsule 100 mg PO DAILY 08/30/23 08/30/23 08/29/23 (CoQ-10) dulaglutide 1.5 mg/0.5 mL 1.5 mg subcut WK 08/30/23 08/30/23 08/26/23 subcutaneous pen injector (Trulicity) empagliflozin 25 mg tablet 25 mg PO DAILY 08/30/23 08/30/23 08/29/23 (Jardiance) insulin lispro protamine-lispro See Rx Instructions .Route .COMPLEX 08/30/23 08/30/23 08/29/23 08:00 100 unit/mL (75-25) subcutaneous pen (Humalog Mix 75-25 KwikPen) lisinopril 10 mg tablet 10 mg PO DAILY 08/30/23 08/30/23 08/29/23 meloxicam 15 mg tablet 15 mg PO DAILY 08/30/23 08/30/23 08/29/23 metformin 1,000 mg tablet 1,000 mg PO BID 08/30/23 08/30/23 08/29/23 08:00 methocarbamol 750 mg tablet 750 mg PO HS 08/30/23 08/30/23 08/28/23 metoclopramide HCl 10 mg tablet 10 mg PO BID 08/30/23 08/30/23 08/29/23 (Reglan) metoprolol tartrate 25 mg tablet 25 mg PO BID 08/30/23 08/30/23 08/29/23 08:00 multivitamin 1 tab PO DAILY 08/30/23 08/30/23 08/29/23 omeprazole 40 mg capsule,delayed 40 mg PO DAILY 08/30/23 08/30/23 08/29/23 release ropinirole 0.5 mg tablet 0.5 mg PO HS 08/30/23 08/30/23 08/28/23 zolpidem 5 mg tablet 5 mg PO HS PRN Sleep 08/30/23 08/30/23 Unknown Active Medications Generic Name Dose Route Start Last Admin Trade Name Freq PRN Reason Stop Dose Admin Acetaminophen 1,000 mg 09/04/23 12:46 09/05/23 12:29 Acetaminophen 500 Mg Tab PO 10/04/23 12:45 1,000 mg Q8H PRN Administration MILD Pain Scale 1,2,3 & Pre PT Aspirin 81 mg 09/05/23 09:00 09/05/23 09:13 Aspirin 81 Mg Ectab PO 10/05/23 08:59 81 mg DAILY LANCE Administration Atorvastatin Calcium 40 mg 08/30/23 21:00 09/04/23 21:25 Atorvastatin 40 Mg Tab PO 09/29/23 20:59 40 mg HS LANCE Administration Bupropion HCl 150 mg 08/30/23 09:00 09/05/23 09:13 Bupropion Sr 150 Mg Tabcr PO 09/29/23 08:59 150 mg BID LANCE Administration Docusate Sodium 100 mg 08/31/23 21:00 09/05/23 09:13 Docusate Sodium 100 Mg Cap PO 09/30/23 20:59 100 mg BID LANCE Administration Hydromorphone HCl 1 mg 09/04/23 12:46 09/05/23 01:19 Hydromorphone Inj 1 Mg/Ml Syringe IV 09/18/23 12:45 1 mg Q3H PRN Administration SEVERE Pain (Scale 7,8,9,10) Insulin Aspart 0 units 09/04/23 16:45 09/05/23 12:30 Insulin Aspart Per Unit Charge SC 10/04/23 05:59 12 units ACHS LANCE Administration Lisinopril 10 mg 08/30/23 09:00 09/05/23 09:13 Lisinopril 10 Mg Tab PO 09/29/23 08:59 10 mg DAILY LANCE Administration Methocarbamol 750 mg 08/30/23 21:00 09/04/23 21:24 Methocarbamol 750 Mg Tablet PO 09/29/23 20:59 750 mg HS LANCE Administration Metoclopramide HCl 10 mg 08/30/23 09:00 09/05/23 07:41 Metoclopramide Hcl 10 Mg Tablet PO 09/29/23 08:59 10 mg BID LANCE Administration Metoprolol Tartrate 25 mg 08/30/23 09:00 09/05/23 09:13 Metoprolol Tartrate 25 Mg Tab PO 09/29/23 08:59 25 mg BID LANCE Administration Multivitamins 1 tab 08/30/23 09:00 09/05/23 09:13 Multivitamin Tab PO 09/29/23 08:59 1 tab DAILY LANCE Administration Oxycodone HCl 5 - 10 mg 09/04/23 12:46 09/04/23 15:17 Oxycodone Hcl Ir 5 Mg Tab (Immediate Release) PO 09/18/23 12:45 10 mg Q4H PRN Administration Pain & Pre PT Pantoprazole Sodium 40 mg 08/30/23 09:00 09/05/23 09:13 Pantoprazole 40 Mg Tab PO 09/29/23 08:59 40 mg DAILY LNACE Administration Polyethylene Glycol 17 gm 09/05/23 06:00 09/05/23 12:21 Polyethylene (Miralax) 17 Gm Pack PO 10/05/23 05:59 17 gm Q6 LANCE Administration Ropinirole HCl 0.5 mg 08/30/23 21:00 09/04/23 21:24 Ropinirole Hcl 0.25 Mg Tablet PO 09/29/23 20:59 0.5 mg HS LANCE Administration Senna/Docusate Sodium 2 tab 09/04/23 21:00 09/04/23 21:25 Docusate Sodium/Senna 50/8.6mg Tab PO 10/04/23 20:59 2 tab HS LANCE Administration Tramadol HCl 50 - 100 mg 09/04/23 12:46 09/05/23 11:16 Tramadol Hcl 50 Mg Tablet PO 10/04/23 12:45 100 mg Q4H PRN Administration Moderate-Severe pain & Pre PT Vitamin D 50 mcg 09/05/23 09:00 09/05/23 09:14 Cholecalciferol 25 Mcg (1000 Units) Tab PO 10/05/23 08:59 50 mcg DAILY LANCE Administration Zolpidem Tartrate 5 mg 08/30/23 07:45 09/04/23 21:30 Zolpidem Tartrate 5 Mg Tab PO 09/29/23 07:44 5 mg HS PRN Administration Sleep
[2023-09-05] MEDS ORDERED: EMPAGLIFLOZIN 25 MG TAB PO SCH (09:00)
[2023-09-05] MEDS ORDERED: NON-FORMULARY MEDICATION (Coenzyme Q10 [Coq-10] 100 mg Capsule) PO SCH (09:00)
[2023-09-05 09:08] LABS: Calcium 9.1 mg/dl (8.6-10.3); Magnesium 1.9 mg/dl (1.7-2.4); Potassium 4.4 mmol/L (3.5-5.1)
[2023-09-05] MEDS: ASPIRIN 81 MG ECTAB PO SCH (09:13)
[2023-09-05 09:14] LABS: Creatinine Clr Calc Pharmacy 203.3 ml/min; Est GFR (African American) 132.7 ml/min; Est GFR (Non-African American) 114.5 ml/min; Phosphorus 3.5 mg/dl (2.5-4.9)
[2023-09-05] MEDS: CHOLECALCIFEROL 25 MCG (1000 UNITS) TAB PO SCH (09:14)
[2023-09-05] MEDS: LANTUS PER UNIT CHARGE SC SCH ×2 (09:22→20:53)
--- NOTE | 2023-09-05 11:33 | Orthopedic Progress Note ---
Date of Service September 05, 2023 Assessment & Plan (1) Cervical cord compression with myelopathy: Plan: At this time we will undergo therapy as tolerated. I recommend rehab when bed available. Admission and Anticipated Discharge Date Admission Date: August 31, 2023 Subjective Patient feels the is improving with his leg function and arm symptoms. He still has dense numbness in the bilateral upper extremities however. Physical Exam Physical Exam: Patient is sitting in the chair at the bedside. His strength is intact the upper extremities as well as lower extremities. He is going to initiate physical therapy later today. Results & Data Vital Signs (Past 12 Hours) Vital Signs Temp Pulse Resp BP Pulse Ox O2 Del Method O2 Flow Rate 09/05/23 11:03 76 18 130/68 96 Room Air 09/05/23 10:48 80 16 94 Room Air 09/05/23 08:53 80 18 129/72 95 Room Air 09/05/23 08:15 83 16 94 Room Air 09/05/23 07:00 36.8 C 74 18 146/88 H 97 Nasal Cannula 1 09/05/23 05:57 73 18 97 Nasal Cannula 2 09/05/23 05:21 36.5 C 73 16 153/86 H 95 Room Air 09/05/23 02:07 63 18 95 Nasal Cannula 2 09/05/23 01:30 36.6 C 79 16 151/66 H 96 Room Air
[2023-09-05] MEDS: bisacodyL 5 MG TABEC PO ONE (11:41)
--- NOTE | 2023-09-05 12:42 | Pharmacy Report ---
Pharmacy Glycemic Short Note 2 - Date of Service September 05, 2023 - Glycemic Short BSG Results (Last 24 hours): 09/04/23 09/04/23 09/04/23 13:17 16:44 20:45 Glucose POC Glucose 206 H 173 H 175 H 09/05/23 09/05/23 09/05/23 06:14 07:49 11:51 Glucose 196 H POC Glucose 190 H 191 H OUTPATIENT ANTIDIABETIC REGIMEN: * Humalog 75/25 mix - 46 units SC qAM + 56 units SC qPM * Metformin 1 g PO BIDM * Jardiance 25 mg PO daily * Trulicity 1.5 mg SC weekly (Sundays) HbA1c: 6.9% (08/30/23) ASSESSMENT: 09/05: * BSGs 621-134-262-191mg/dl the last 24h. Received 35 units of basal and 24 units of bolus insulin yesterday. * Steroids d/c'd. Diet advanced to diabetic diet. * Lantus 15 units this AM given steroids d/c'd. Added and HS scale (15/25 units) depending on BSG. Novolog tightened as BSGs in 190s so far today. 09/04: * BSGs 050-140-647-175-205mg/dL. Received 50 units of basal and 46 units of bolus insulin yesterday. * POD # 0 spinal surgery. Dexamethasone 4mg IV q6h transitioned to 8mg IV q8h. * Diet advanced from NPO to full liquids. * Lantus decreased given NPO status - 15 units X 1 this afternoon and an HS scale depending on BSG. No change to Novolog. 09/03: * BS is a 63 year old male who originally presented to ED on 08/30 w/ CC of head/neck/left leg pain following a fall * Orthopedics consulted - patient requiring urgent surgical intervention * C4 corpectomy, w/ cervical discectomy/fusion scheduled for tomorrow morning (09/04/23) * Dexamethasone 4 mg IV q6h initiated today - pharmacy consulted for glycemic management w/ initiation of steroids * Blood sugars well-controlled yesterday with 38 units of insulin (prior to steroids) * Given ~100 units of insulin/day reported at home in addition to other agents + initiation of steroids, I am anticipating significantly increased insulin needs upcoming. PLAN FOR INPATIENT GLYCEMIC CONTROL: * Hold outpatient oral diabetes medications * Basal insulin * Lantus 15 units SQ X 1 + HS scale (15/25 units) depending on BSG * Bolus insulin * NovoLog per scale ACHS or Q6hrs while NPO * Goal Range: Low 110 mg/dL - High 140 mg/dL * Correction Factor: 12 mg/dL/unit * Nutritional / Prandial insulin per carb ratio of 1 unit per 4 grams CHO consumed
[2023-09-05] MEDS: ACETAMINOPHEN 500 MG TAB PO SCH (13:23)
[2023-09-05] MEDS: CHLORASEPTIC (PHENOL) 1.4% SOLN 180 ML BTL MT PRN (13:40)
[2023-09-05] MEDS: HYDROmorphone INJ 0.5 MG/0.5 ML SYR IV PRN (21:10)
--- NOTE | 2023-09-06 08:22 | Orthopedic Progress Note ---
Date of Service September 06, 2023 Assessment & Plan (1) Cervical cord compression with myelopathy: Plan: This time we will continue physical therapy. He is cleared for rehab when a bed is available from an orthopedic standpoint. Admission and Anticipated Discharge Date Admission Date: August 31, 2023 Subjective Patient is struggling with a sore throat. He is able to eat well. Denies any hoarseness. Feels the symptoms in the arms and legs are improving. Physical Exam Physical Exam: Patient is currently in bed. He has reasonable strength testing upper and lower extremities. Results & Data Vital Signs (Past 12 Hours) Vital Signs Temp Pulse Resp BP BP Pulse Ox O2 Del Method 09/06/23 07:37 36.5 C 70 16 148/80 H 94 Room Air 09/06/23 03:18 36.5 C 69 16 127/69 94 Room Air 09/05/23 23:08 36.7 C 77 16 110/62 93 Room Air
[2023-09-06 08:40] LABS: Hematocrit (blood only) 40.8 % (42.0-52.0); Hemoglobin 13.1 g/dl (14.0-18.0); Mean Corpuscular Hemoglobin 27.7 pg (25.0-34.0); Mean Corpuscular Hgb Conc 32.1 g/dL (32.0-36.0); Mean Corpuscular Volume 86.3 fL (80.0-100.0); Mean Platelet Volume 10.2 fL (9.4-12.4); Platelet Count 214 K/uL (130-400); RDW Standard Deviation 44.1 fL (36.4-46.3); Red Blood Count 4.73 M/uL (4.70-6.10); White Blood Count 10.08 K/ul (4.8-10.8)
[2023-09-06 08:50] LABS: BUN Creatinine Ratio 33.9 (10-20); Creatinine Clr Calc Pharmacy 172.3 ml/min; Potassium 4.1 mmol/L (3.5-5.1)
[2023-09-06 08:51] LABS: Calcium 9.1 mg/dl (8.6-10.3); Magnesium 1.9 mg/dl (1.7-2.4); Phosphorus 2.6 mg/dl (2.5-4.9)
--- NOTE | 2023-09-06 09:38 | Discharge Summary ---
Discharge Summary Date of Service September 06, 2023 Notes For Next Care Provider Medication Changes From Visit Recommended for pain regimen: Continue scheduled Tylenol 1000mg every eight hours Use Tramadol 50mg for moderate pain (scale 3-6) Use Oxycodone 10mg for severe pain (scale 7-10) Admission HPI Per Admitting Provider History obtained from patient, family, and records. Medical history significant for CAD status post stent, hypertension, hyperlipidemia, DM2 insulin requiring, cervical myelopathy, mood disorder, past tobacco abuse. 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 Patient landed on his left side resulting head trauma. Achy headache, neck and left lower leg pain following fall. No LOC/syncope. Denies chest pain or unusual SOB. No unusual low back pain. Left leg feels weak from pain as per patient. Chronic numbness on all 4 extremities which patient attributes to cervical myelopathy for which elective surgery is contemplated next week at [facility]. Denies incontinence symptoms. Highest SBP of 180s documented at the ER. SBP currently 150s. Patient unable to walk due to left lower leg pain/weakness. 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 Admission Exam Per Admitting Provider GENERAL: Slightly uncomfortable, pleasant, obese, no respiratory distress SKIN: Normal color, warm HEENT: [place] palpebral conjunctivae, no ptosis, dry buccal mucosa NECK : Cervical collar in place, no overt tenderness CHEST : CTA, no tenderness HEART : RRR, no obvious murmurs ABDOMEN: Some distention, nontender EXTREMITIES : No LE swelling, LLE tenderness, no other conspicuous deformities noted NEUROLOGIC : Coherent, no facial asymmetry, MMTs BUE 4/5, RLE 3/5, LLE 2/5, gait and stance not assessed Principal Dx & Hospital Course #1 = Principal Diagnosis (1) Leg pain, left: Plan Mr. 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 Patient landed on his left side resulting in hea d trauma -no LOC, has left-sided pain. Of note, patient has chronic numbness on his all 4 extremities secondary to his cervical myelopathy for which he had elective surgery planned. While admitted, patient evaluated given the degree of pain and symptoms by Ortho--determined to undergo cervical fusion on 09/04. #Cervical cord compression with myelopathy s/p surgical intervention #Cervical Stenosis MRI C-spine cord edema noted Pain consulted: recommended surgical intervention Orthospine evaluated, status post cervical spine repair 09/04. Now, POD 1 -#1 anterior cervical rectum and bilateral foraminotomies C4. #2 anterior cervical discectomy with bilateral foraminotomies C5-C6. #3 anterior cervical arthrodesis C3-C5 and C5-C6. #4 placement of peek cage 23 mm in height at C3-C5 and 8 mm height at C5-C6. #5 placement locally harvested morselized autograft combined with I factor interbody space. #6 application of K2 M plate and screws from C3 to C6. PT/OT: discharged to rehab Bowel regimen in place Pain regimen: tylenol, oxy/tramadol [place] J in place #Mechanical Fall #Left leg pain, likely traumatic Rule out bony injury CT head, left hip x-ray, bilateral knee x-ray, left tibia fibula x-ray with no fracture. CT C-spine and MRI C-spine with chronic findings. Due to left calf pain, US venous Doppler to rule out DVT:negative Discharge to [facility] #Acute blood loss anemia 2/2 post-operative losses Preop Hgb 14.8, post op 12.9 EBL 50cc intraop, MARY drain in place Trend hgb, transfuse <7.0 MARY management per Ortho service Follow up OP with Ortho Other chronic medical conditions: Continue with/resume home meds as and when able. #hx CAD status post stent #hypertension, BP fairly under control -Metoprolol 25mg BID, lisinopril 10mg daily #hyperlipidemia on statin Rx, continue #DM2 insulin requiring, unknown baseline control. A1c of 6.9 this admission. Glycemic pharmacy consult as patient on steroid. #mood disorder, stable on bupropion #past tobacco abuse On day of discharge, patient stated pain is under adequate control. Denies any acute concerns. Discharge Exam Constitutional WD/WN, vitals as above Neck surgical bandage in place, no strike through, [place] J in place Cardiovascular RRR, no murmur, no edema Gastrointestinal (Abdomen) normal bowel sounds, soft, nontender, no hepatosplenomegaly Updated Medication List Medication Instructions Recorded Confirmed Type aspirin 81 mg tablet,delayed 81 mg PO DAILY 08/30/23 08/30/23 History release atorvastatin 40 mg tablet 40 mg PO HS 08/30/23 08/30/23 History bupropion HCl 150 mg tablet,12 hr 150 mg PO BID 08/30/23 08/30/23 History sustained-release cholecalciferol (vitamin D3) 50 50 mcg PO DAILY 08/30/23 08/30/23 History mcg (2,000 unit) capsule (Vitamin D3) coenzyme Q10 100 mg capsule 100 mg PO DAILY 08/30/23 08/30/23 History (CoQ-10) dulaglutide 1.5 mg/0.5 mL 1.5 mg subcut WK 08/30/23 08/30/23 History subcutaneous pen injector (Trulicity) empagliflozin 25 mg tablet 25 mg PO DAILY 08/30/23 08/30/23 History (Jardiance) insulin lispro protamine-lispro See Rx Instructions .Route .COMPLEX 08/30/23 08/30/23 History 100 unit/mL (75-25) subcutaneous pen (Humalog Mix 75-25 KwikPen) lisinopril 10 mg tablet 10 mg PO DAILY 08/30/23 08/30/23 History metformin 1,000 mg tablet 1,000 mg PO BID 08/30/23 08/30/23 History methocarbamol 750 mg tablet 750 mg PO HS 08/30/23 08/30/23 History metoclopramide HCl 10 mg tablet 10 mg PO BID 08/30/23 08/30/23 History (Reglan) metoprolol tartrate 25 mg tablet 25 mg PO BID 08/30/23 08/30/23 History multivitamin 1 tab PO DAILY 08/30/23 08/30/23 History omeprazole 40 mg capsule,delayed 40 mg PO DAILY 08/30/23 08/30/23 History release ropinirole 0.5 mg tablet 0.5 mg PO HS 08/30/23 08/30/23 History zolpidem 5 mg tablet 5 mg PO HS PRN Sleep 08/30/23 08/30/23 History acetaminophen 500 mg tablet 1,000 mg (2 x 500 mg) PO Q8 #90 09/06/23 Rx (Tylenol Extra Strength) tabs oxycodone 5 mg tablet 5 - 10 mg (1 - 2 x 5 mg) PO Q4H 09/06/23 Rx PRN pain (scale score 7-10) #72 tabs tramadol 50 mg tablet 50 mg PO Q4H PRN pain #56 tabs 09/06/23 Rx Hospital Stay Data Consultations 08/30/23 04:30 ED Decision to Admit Stat 09/02/23 15:40 Consult Pain Management Routine 09/03/23 08:44 Consult Orthopedic Spine Surgery Routine 09/03/23 09:40 Consult Cardiology Routine Procedures Performed Operation Date: 09/04/23 08:30 Actual Procedures p C4 Corpectomy, C5-C6 Anterior Cervical Discectomy Fusion, Spinal Cord Monitoring(Not Applicable) - Celestine Webb, Diagnostic Imagining Performed 08/29/23 22:30 CT cervical spine wo con Stat CT head/brain wo con Stat 08/30/23 00:34 MR cervical spine wo con Stat 08/30/23 15:12 US venous doppler LE LT Routine 09/04/23 07:00 FL cervical 2-3V Routine Pending Results Patient Have Any Pending Studies at Discharge: No Discharge Instructions Given to Patient (Per Discharging Provider) You were admitted for pain after sustaining a fall. It was decided to undergo elective cervical fusion procedure while you were admitted given concerns for swelling on spinal cord. You underwent the procedure on 09/04. It was recommended you go to rehab. Please continue to wear C-collar at all times, only to be removed while eating, bathing, or sitting in a recliner. Please follow the surgical directions below. Pain regimen: Continue scheduled Tylenol 1000mg every eight hours Use Tramadol 50mg for moderate pain (scale 3-6) Use Oxycodone 10mg for severe pain (scale 7-10) Please resume all home medications. Total Time Total Time Spent Total Time Spent (In Minutes): 55
--- NOTE | 2023-09-06 12:40 | Pharmacy Report ---
Pharmacy Glycemic Short Note 2 - Date of Service September 06, 2023 - Glycemic Short BSG Results (Last 24 hours): 09/05/23 09/05/23 09/06/23 17:03 20:33 07:44 Glucose POC Glucose 154 H 140 H 142 H 09/06/23 09/06/23 07:49 11:23 Glucose 155 H POC Glucose 155 H OUTPATIENT ANTIDIABETIC REGIMEN: * Humalog 75/25 mix - 46 units SC qAM + 56 units SC qPM * Metformin 1 g PO BIDM * Jardiance 25 mg PO daily * Trulicity 1.5 mg SC weekly (Sundays) HbA1c: 6.9% (08/30/23) ASSESSMENT: 09/06: * BSGs were 338-226-712-140 mg/dl yesterday. Patient received 30 units basal and 40 units of bolus insulin yesterday. * IV Dexamethasone was discontinued after one dose was given early yesterday morning. So, basal insulin for this AM was discontinued. Novolog parameters were loosened. * Today fasting BSG = 142 mg/dl; Pre-lunch BSG = 155 mg/dl. Increased basal dose at HS to 20 units tonight to obtain slightly better fasting BSG. 09/05: * BSGs 257-438-794-191mg/dl the last 24h. Received 35 units of basal and 24 units of bolus insulin yesterday. * Steroids d/c'd. Diet advanced to diabetic diet. * Lantus 15 units this AM given steroids d/c'd. Added and HS scale (15/25 units) depending on BSG. Novolog tightened as BSGs in 190s so far today. 09/04: * BSGs 647-787-394-175-205mg/dL. Received 50 units of basal and 46 units of bolus insulin yesterday. * POD # 0 spinal surgery. Dexamethasone 4mg IV q6h transitioned to 8mg IV q8h. * Diet advanced from NPO to full liquids. * Lantus decreased given NPO status - 15 units X 1 this afternoon and an HS scale depending on BSG. No change to Novolog. 09/03: * BS is a 63 year old male who originally presented to ED on 08/30 w/ CC of head/neck/left leg pain following a fall * Orthopedics consulted - patient requiring urgent surgical intervention * C4 corpectomy, w/ cervical discectomy/fusion scheduled for tomorrow morning (09/04/23) * Dexamethasone 4 mg IV q6h initiated today - pharmacy consulted for glycemic management w/ initiation of steroids * Blood sugars well-controlled yesterday with 38 units of insulin (prior to steroids) * Given ~100 units of insulin/day reported at home in addition to other agents + initiation of steroids, I am anticipating significantly increased insulin needs upcoming. PLAN FOR INPATIENT GLYCEMIC CONTROL: * Hold outpatient oral diabetes medications * Basal insulin * Lantus 20 units SC HS * Bolus insulin * NovoLog per scale ACHS or Q6hrs while NPO * Goal Range: Low 110 mg/dL - High 140 mg/dL * Correction Factor: 15 mg/dL/unit * Nutritional / Prandial insulin per carb ratio of 1 unit per 5 grams CHO consumed
[2023-09-06] MEDS ORDERED: LANTUS PER UNIT CHARGE SC SCH (21:00)
== END 2023-09-06 15:15 | DRG 29 ==
LOC: 3W 22:07 → ED 22:07 → MERGE 08-30 04:55 → 3W 08-30 06:27 → SUATTDRO 08-31 16:14